=== PATIENT | male | born 1960 | race Caucasian/White ===

== ENCOUNTER 2017-12-22 10:25 | Inpatient (IN) | payer BC ==
--- NOTE | 2017-12-21 15:59 | Diagnostic Imaging Report ---
PROCEDURE: Frontal and lateral views of the chest. COMPARISON: None. INDICATIONS: PRE OPERATIVE CHEST X-RAY FOR SHOULDER SURGERY FINDINGS: Lines/tubes: None. Lungs: The lungs are well inflated and clear. There is no evidence of pneumonia or pulmonary edema. Pleura: There is no pleural effusion or pneumothorax. Heart and mediastinum: The heart and the mediastinum are normal. Bones: No acute bony abnormality. Degenerative changes in the thoracic spine. IMPRESSION: 1. No acute cardiopulmonary abnormalities. Willi Lewis M.D. Dictated by: Willi Lewis M.D. on 12/21/2017 at 16:01 Electronically approved by: Willi Lewis M.D. on 12/21/2017 at 16:01
[~2017-12-22] VITALS: Ht 170.2 cm; Wt 82.6 kg
[~2017-12-22 10:25] MED LIST: ALEVE220 M1 PO; LISINOPRIL10 MG PO; TYLENOL PO
--- OUTSIDE RECORDS SUMMARY | 2017-12-22 10:27 | XMS REPORT ---
Author Author [facility] Address Unknown Phone Unavailable Care Team Providers Care Bushler Name Role Phone SHAHEEN JOY Unavailable Unavailable Problems This patient has no known problems. Allergies, Adverse Reactions, Alerts This patient has no known allergies or adverse reactions. Medications This patient has no known medications. Results Test Description Test Time Test Comments Text Results Atomic Results Result Comments CHEST 2 VIEWS [place] [address] Patient Name: EMILY KEE MR #: [id number] : 1960 Age/Sex: 57/M Req # : [id number] Adm Physician: Ordered by: CHUCK NICE MD Report #: [id number] Location: OR Room/Bed: Procedure: [id number] DX/CHEST 2 VIEWS Exam Date: 12/21/17 Exam Time: 1540 REPORT STATUS: Signed PROCEDURE: Frontal and lateral views of the chest. COMPARISON: None. INDICATIONS: PRE OPERATIVE CHEST X- RAY FOR SHOULDER SURGERY FINDINGS: Lines/tubes: None. Lungs: The lungs are well inflated and clear. There is no evidence of pneumonia or pulmonary edema. Pleura: There is no pleural effusion or pneumothorax. Heart and mediastinum: The heart and the mediastinum are normal. Bones: No acute bony abnormality. Degenerative changes in the thoracic spine. IMPRESSION: 1. No acute cardiopulmonary abnormalities. Chapin Lewis M.D. Dictated by: Cahpin Lewis M.D. on 12/21/2017 at 16:01 Electronically approved by: Chapin Lewis M.D. on 12/21/2017 at 16:01 Dictated By: CHAPIN LEWIS MD [id number] Transcribed By: ISABELLA on 12/21/17 1601 COPY TO: CHUCK NICE MD
[2017-12-22] MEDS ORDERED: CEFAZOLIN SOD 1 GM VIAL ONE (10:31)
[2017-12-22] MEDS ORDERED: IOPAMIDOL 610MG/1ML 300 MG/ML VIAL IV ONE (12:20)
[2017-12-22] MEDS ORDERED: BELLADONNA/OPIUM 30 MG SUPP RC ONE (14:06)
[2017-12-22] MEDS ORDERED: FENTANYL CITRATE/PF 100MCG/2 ML INJ ONE ×2 (14:28→15:11)
[2017-12-22] MEDS ORDERED: MORPHINE SULFATE INJ 10 MG/ML ONE (14:36)
[2017-12-22] MEDS ORDERED: ROCURONIUM BROMIDE 10 MG/ML 5ML VIAL ONE (14:38)
[2017-12-22] MEDS ORDERED: LIDOCAINE HCL 2% LOCAL INJ 5 ML SDV VIAL INJ ONE (14:38)
[2017-12-22] MEDS ORDERED: SEVOFLURANE INHAL SOLN 250 ML PEN BTL ONE (14:38)
[2017-12-22] MEDS ORDERED: ONDANSETRON HCL INJ 2 MG/ML VIAL ONE (14:38)
[2017-12-22] MEDS ORDERED: DEXAMETHASONE SOD PHOS INJ 4 MG/ML VIAL ONE (14:38)
[2017-12-22] MEDS ORDERED: PROPOFOL IV EMULSION 10 MG/ML 20 ML VIAL ONE (14:38)
[2017-12-22] MEDS ORDERED: MIDAZOLAM HCL 2 MG/2 ML VIAL ONE (15:11)
[2017-12-22] MEDS ORDERED: CEFAZOLIN SOD 1 GM/NS 50ML 50 ML IV SCH (16:15)
[2017-12-22 16:38] VITALS: BP 176/70
[2017-12-22] MEDS ORDERED: CEFAZOLIN SOD 1 GM VIAL IV SCH (16:45)
[2017-12-22 17:06] VITALS: BP 176/70
[2017-12-22] MEDS: HYDROMORPHONE 2MG/ML INJ IV PRN ×2 (17:15→20:45)
[2017-12-22 17:21] LABS: HEMATOCRIT 40.1 % (38.2-49.6); HEMOGLOBIN 13.3 g/dL (14.0-18.0)
[2017-12-22 18:46] VITALS: BP 134/64
[2017-12-22 20:00] VITALS: BP 93/66
[2017-12-22 20:22] VITALS: BP 93/66
[2017-12-22] MEDS: CEFAZOLIN SOD 1 GM VIAL IV SCH (21:41)
--- NOTE | 2017-12-23 00:22 | Operative Report ---
DATE OF PROCEDURE: December 22, 2017 SERVICE: Urology. PREOPERATIVE DIAGNOSES 1. Gross hematuria. 2. Possible bladder tumors. POSTOPERATIVE DIAGNOSES 1. Gross hematuria. 2. Possible bladder tumors. 3. Extensive bladder tumor involving multiple areas of the bladder, size well over 10 cm. OPERATIONS PERFORMED 1. Cystoscopy and evacuation of blood clots. 2. Transurethral resection of multiple bladder tumor in the anterior right wall, posterior wall, and near the bladder outlet, way over 10 cm. PERSONNEL REPRESENTATIVE: None. ANESTHESIA: General. CLINICAL INDICATION NOTE: This is a 57-year-old patient that had hematuria several years ago. At that time, refused to be further evaluated, though I have recommended evaluation including cystoscopy. Recently, patient had severe recurrent hematuria and now, he agreed to be evaluated and was brought for cystoscopy. Possibility of tumor was discussed with the patient. Procedure, benefits, and complications discussed, explained, and accepted. DESCRIPTION OF PROCEDURE AND FINDINGS: After proper level of anesthesia was achieved, the patient was placed in lithotomy position, prepped and draped in sterile fashion. Urethra inspected appeared to be unremarkable. The outlet obstructed minimally by enlarged prostate. Bladder is having multiple blood clots and they were all evacuated. Following this, it was possible to assess the bladder and extensive tumor was present, most of it on the left side of the bladder and anteriorly extending all the way to the bladder outlet. Additional tumor on the trigone and on the posterior aspect of the bladder. The tumors are quite large. It was not possible to do any retrograde pyelograms. The ureteral orifices could not be identified. Following this, the scope was removed and the resectoscope was re-inserted and systematic resection of this much tumor as possible was done. Does not seem that it was possible to do a transurethral resection to the extent of the tumor. At best, this is a partial resection. The tumor had parts, which are solid and parts, which are papillary. All the specimen that were removed were sent to pathology. Following the resection with the loop, a coagulation bulb was inserted and any visible bleeding were carefully coagulated. Following this, a 24-Syriac 3-way Dorado catheter was inserted and connected to continuous irrigation with water. Patient tolerated the procedure well. Estimated blood loss during the procedure was negligible. Patient was transferred in satisfactory condition to recovery room. Job#: [id number] CQ
[2017-12-23] MEDS: HYDROMORPHONE 2MG/ML INJ IV PRN ×2 (01:17→09:40)
[2017-12-23 04:00] VITALS: BP 87/54
[2017-12-23 07:20] VITALS: BP 119/62
[2017-12-23 07:28] VITALS: BP 119/62
[2017-12-23] MEDS: CEFAZOLIN SOD 1 GM VIAL IV SCH (11:34)
[2017-12-23 11:38] VITALS: BP 127/68
--- NOTE | 2017-12-24 13:40 | Discharge Summary ---
FINAL DIAGNOSES 1. Gross hematuria. 2. Status post cystoscopy and evacuation of blood clot, transurethral resection of multiple urinary bladder tumors in the anterior right wall, posterior wall and near the bladder outlet, well over 10 cm. SUMMARY: This is a 57-year-old male with history of hematuria for months. The patient now had cystoscopy done and was found to have multiple lesions in the urinary bladder. Tumors subsequently removed, pathology is still pending. Signs and symptoms in the urinary bladder with cystoscopy consistent with urinary bladder tumor. The patient's pathology, however, is still pending. Discussed with patient at length. He will need further surgery upon followup when pathology is available. The patient will go home today. Follow up with Dr. Jorge Abebe as an outpatient. He will go home with a Dorado catheter with a leg bag. All instructions were given. Patient is stable and discharged home with Augmentin 500 mg 1 twice a day for 6 days and Tylenol No. 3 p.r.n. for pain. The patient expressed understanding. He will discharge home today. Job#: [id number]
== END 2017-12-23 13:44 | disposition home health service (06) | DRG 670 ==
LOC: OR 10:25 → MED/SURG 16:26
PROVIDERS: ADMIT Internal Medicine; ATTEND Internal Medicine
PROC: 0TBB8ZX Excision of Bladder, Via Natural or Artificial Opening Endoscopic, Diagnostic (ICD-10-PCS; principal; 2017-12-22 13:00)
DX: C67.9 Malignant neoplasm of bladder, unspecified (principal); D64.9 Anemia, unspecified; I10 Essential (primary) hypertension
CPT/HCPCS: 36415; 71046; 85014; 85018; 88305; 93005; J0690; J1100; J2001; J2250; J2270; J2405

== ENCOUNTER 2017-12-25 20:46 | Emergency (ER) | payer BC ==
[~2017-12-25] VITALS: Ht 170.2 cm; Wt 82.6 kg
--- OUTSIDE RECORDS SUMMARY | 2017-12-25 20:49 | XMS REPORT | Continuity of Care Document ---
Author Author [facility] Organization [facility] Address [address] [place] [address] Phone Unavailable Care Team Providers Care Data Analysis Assistant Name Role Phone NO, PCP PCP Unavailable Insurance Providers Guarantor Mynor To Address [address] [place] [address] Email [email or web address] Payer [facility] Policy Number [id number] Subscriber's Name Mynor To Relationship 18 Self / Same As Patient Effective Date 17 Advance Directives Directive Response Recorded Date/Time Does the patient have an advance directive? No 12/22/17 4:38pm If yes, is advance directive on file with [facility]? No 12/22/17 4:38pm If not on file with [facility] will patient provide a copy? No 12/22/17 4:38pm Do you have a Directive to Physician? No 12/21/17 2:47pm Do you have a Medical Power of Electrical Systems Design Engineer? No 12/21/17 2:47pm Do you have an out of hospital Do Not Resuscitate Order? No 12/21/17 2:47pm Do you have any special needs we should be aware of? No 12/21/17 2:47pm Do you have a support person here with you today? Yes 12/21/17 2:47pm Did patient receive Notice of Privacy Practices? Yes 12/21/17 2:47pm Did patient receive patient rights and responsibilities? Yes 12/21/17 2:47pm Problems No problem information available. Medications Current Home Medications Medication Dose Units Route Directions Days Qty Instructions Start Date Lisinopril 10 Mg Tablet 40 Mg Oral Daily 30 Tab Naproxen Sodium (Aleve) 220 Mg Capsule Oral As Needed Tylenol 650 Mg Oral As Needed Social History Social History Problem Response Recorded Date/Time Onset Date Status Hx Psychiatric Problems No 12/22/2017 4:38pm Not Applicable Not Applicable Hx Eating Disorder No 12/22/2017 4:38pm Not Applicable Not Applicable Hx Substance Use Disorder No 12/22/2017 4:38pm Not Applicable Not Applicable Hx Depression No 12/22/2017 4:38pm Not Applicable Not Applicable Hx Alcohol Use No 12/22/2017 4:38pm Not Applicable Not Applicable Hx Substance Use Treatment No 12/22/2017 4:38pm Not Applicable Not Applicable Hx Physical Abuse No 12/22/2017 4:38pm Not Applicable Not Applicable Smoking Status Start Date Stop Date Current every day smoker Hospital Discharge Instructions No hospital discharge instruction information available. Plan of Care Discharge Date 12/23/17 1:44pm Disposition HOME HEALTH SERVICE Instructions/Education Provided Post Operative Pain Prescriptions See Medication Section Additional Instructions/Education MAY SHOWER WITH READ FOLLOW UP WITH DR. Mau JOY 1 TO 2 WEEKS TO REMOVE READ OVER THE COUNTER AZO THREE TIMES A DAY NEEDED FOLLOW UP WITH PCP DIRECTED Functional Status Query Response Date Recorded Assistive Devices None December 22, 2017 4:38pm Ambulation Ability Independent December 22, 2017 4:38pm Toileting Ability Independent December 23, 2017 9:36am Allergies, Adverse Reactions, Alerts Allergen Type Severity Reaction Status Last Updated No Known Drug Allergies Allergy Mild Active 10/19/10 Immunizations No immunization information available. Vital Signs Acute Vital Signs Vital Response Date/Time Temperature (Fahrenheit) 96.5 degrees F (97.6 - 99.5) 12/23/2017 11:38am Pulse Pulse Rate (adult) 76 bpm (60 - 90) 12/23/2017 11:38am Respiratory Rate 19 bpm (12 - 24) 12/23/2017 11:38am Blood Pressure 127/68 mm Hg 12/23/2017 11:38am Height 5 ft 7 in 12/22/2017 4:38pm Weight 182.19 lb 12/22/2017 4:38pm Body Mass Index 28.5 kg/m^2 12/22/2017 4:38pm Results Laboratory Results Test Name Result Units Flags Reference Collection Date/Time Result Date/ Time Comments Hemoglobin 13.3 g/dL L 14.0-18.0 12/22/2017 5:02pm 12/22/2017 5:21pm Hematocrit 40.1 % 38.2-49.6 12/22/2017 5:02pm 12/22/2017 5:21pm Procedures Procedure Status Date Provider(s) Cystoscopy with retrograde pyelography Completed 12/22/17 SHAHEEN JOY MD X-ray of chest, two views Active 12/21/17 CHUCK NICE MD Encounters Encounter Location Arrival/Admit Date Discharge/Depart Date Attending Provider Discharged Inpatient [facility] 12/22/17 4:26pm 12/23/17 1:44pm LENORA REVELES MD
[2017-12-25 22:41] VITALS: BP 139/91
== END 2017-12-25 22:41 | disposition home or self-care (01) ==
LOC: ER 20:46
DX: Z98.890 Other specified postprocedural states (principal); N48.89 Other specified disorders of penis; Z85.51 Personal history of malignant neoplasm of bladder
CPT/HCPCS: 99282

== ENCOUNTER → 2018-01-12 | Outpatient (CLI) | payer BC ==
--- NOTE | 2018-01-12 18:45 | Diagnostic Imaging Report ---
Bone Scan, delayed phase INDICATION: Bladder tumor diagnosed 3 weeks ago. COMPARISON: None REPORT: Approximately 3 hours following intravenous administration of 26.5 mCi of Tc-99m MDP, delayed total body images in the anterior and posterior projections and selected spot images were obtained. Small focus of mildly increased tracer activity in the right 8th rib posteriorly near the costovertebral junction. Focal areas of increased tracer are seen in the left side of T10 and T11 as well as the right side of L3-L5 and at L5/S1 on the left. Mild degenerative changes are seen in multiple peripheral joints. Otherwise, distribution of tracer activity is unremarkable throughout the skeletal system. The renal parenchyma of the left kidney shows retention of tracer. No abnormal accumulation of tracer in the renal collecting systems. IMPRESSION: 1. No definite evidence of metastatic bone disease. Degenerative changes are present in the lower thoracic and lower lumbar spine. The small osteoblastic focus at the right costovertebral junction of the right 8th rib is indeterminate but likely degenerative or post-traumatic. 2. Retention of tracer in the left kidney parenchyma suggests an inflammatory or infiltrative process. Signed by: Dr. Leigh Ames M.D. on 01/12/2018 6:42 PM
== END ==
LOC: NM 10:58
PROVIDERS: ATTEND Urology
DX: C67.9 Malignant neoplasm of bladder, unspecified (principal); R31.0 Gross hematuria
CPT/HCPCS: 78306; A9503

== ENCOUNTER → 2018-02-05 | Outpatient (CLI) | payer BC ==
[~2018-02-05] MED LIST changes: +IOPAMIDOL 370 MG/ML 200 ML INFUS..BTL INJ ONE; +SODIUM CHLORIDE 0.9% 250ML 250 ML ONE
[2018-02-05 12:40] LABS: CREATININE, SERUM 1.24 mg/dL (0.72-1.25)
--- NOTE | 2018-02-05 15:17 | Diagnostic Imaging Report ---
ADDENDUM #1 Multiple unsuccessful attempts were made to notify Dr. Abebe on 02/05/2018 between 3:15 PM to 4:[address] Abebe was paged by his office staff with call back number to discuss the findings. Signed by: Dr. Rito Ferrer MD on 02/05/2018 4:37 PM ADDENDUM #2 CT results were discussed with Dr. Abebe at 4:40 PM, on 02/05/2018. Signed by: Dr. Rito Ferrer MD on 02/05/2018 4:41 PM ORIGINAL REPORT EXAM: CT Abdomen and Pelvis WITHOUT and WITH contrast INDICATION: \[id number] \S\1331 \S\BLADDER CANCER / HEMATURIA COMPARISON: None. TECHNIQUE: Abdomen and pelvis were scanned utilizing a multidetector helical scanner from the lung base to the pubic symphysis before and after administration of IV contrast. Coronal and sagittal reformations were obtained. Hematuria (CT Urogram) protocol was performed. Scan was performed pre- in supine position and nephrogenic/excretory phase with a 10 minute split bolus in prone position. IV CONTRAST: 150 mL of Isovue-370 ORAL CONTRAST: Water COMPLICATIONS: None RADIATION DOSE: Total DLP: 1225.64 mGy*cm Estimated effective dose: (DLP x 0.015 x size factor) mSv CTDIvol has been reviewed. It is below the limits set by the Radiation Protocol Committee (RPC). FINDINGS: LINES and TUBES: None. LOWER THORAX: Mild centrilobular emphysematous changes. Mild lingular linear atelectasis/scarring. HEPATOBILIARY: Ill-defined subtle right hepatic lobe hypodensity is too small to characterize (series 6, image 36). No hepatic mass. No biliary ductal dilation. GALLBLADDER: No radio-opaque stones or sludge. No wall thickening. SPLEEN: Mild splenomegaly, measuring 12.6 cm. PANCREAS: No focal masses or ductal dilatation. ADRENALS: Thickening of the left adrenal gland without discrete nodule. Unremarkable right adrenal gland. KIDNEYS/URETERS: Kidneys: Decreased left renal enhancement when compared to contralateral side. Mild to moderate left hydroureteronephrosis. No right hydronephrosis. Cyst: None. Right renal inferior pole subcentimeter hypodensity is too small to characterize, but is probably a cyst. Mass: None. Stones: None. Upper collecting systems: No right irregularities or filling defects. Left collecting systems are not opacified. Ureters: Right ureter is almost fully opacified and normal in appearance. Left ureter is not opacified. Bladder: Multifocal bladder masses, the largest measuring approximately 6.5 x 4.7 cm (series 6, image 126). There is left posterior extraluminal extension of tumor, probably involving the distal left ureter (series 6, image 121). GI TRACT: No abnormal distention, wall thickening, or evidence of bowel obstruction. Appendix is normal. PELVIC ORGANS/BLADDER: Unremarkable. LYMPH NODES: Approximately 2.2 x 0.9 cm left external iliac lymph node (series 6, image 113). 1.3 cm left common iliac lymph node (series 6, image 87). 1.2 cm gastrohepatic lymph node (series 6, image 31). 1.2 cm portacaval lymph node (6/44). 0.9 cm periportal lymph node (6/35). Multiple additional subcentimeter nonspecific retroperitoneal lymph nodes. VESSELS: Mild aortoiliac atherosclerotic disease. PERITONEUM / RETROPERITONEUM: No free air or fluid. BONES: Mild levoscoliosis of lumbar spine with multilevel advanced degenerative changes. SOFT TISSUES: Unremarkable. IMPRESSION: 1. Multifocal bladder masses, consistent with known malignancy. There is left posterior extraluminal extension of tumor with probable involvement of the distal left ureter at the ureterovesical junction and resultant mild to moderate left hydroureteronephrosis and delayed left nephrogram. 2. Left external iliac and common iliac lymph nodes are suspicious for metastatic disease. Multiple additional retroperitoneal lymph nodes are indeterminate. Signed by: Dr. Rito Ferrer MD on 02/05/2018 3:14 PM
== END ==
LOC: CT 11:56
PROVIDERS: ATTEND Urology
DX: C67.9 Malignant neoplasm of bladder, unspecified (principal); R31.9 Hematuria, unspecified
CPT/HCPCS: 36415; 74178; 82565; 84520; J7050; Q9967

== ENCOUNTER 2018-02-19 10:29 | Inpatient (IN) | payer BC ==
[2018-02-16 10:24] LABS: BASOPHILS % 0.4 % (0.0-1.0); EOSINOPHILS # (AUTO) 0.2 (0.0-0.4); EOSINOPHILS % 2.9 % (0.0-6.0); HEMATOCRIT 35.1 % (38.2-49.6); HEMOGLOBIN 11.7 g/dL (14.0-18.0); LYMPHOCYTES # (AUTO) 2.5 (1.0-3.2); LYMPHOCYTES % 34.5 % (18.0-39.1); MEAN CORPUSCULAR HEMOGLOBIN 28.5 pg (28-32); MEAN CORPUSCULAR HGB CONC 33.3 g/dL (31-35); MEAN CORPUSCULAR VOLUME 85.6 fL (81-99); MONOCYTES # (AUTO) 0.8 (0.2-0.8); MONOCYTES % 10.9 % (4.4-11.3); NEUTROPHILS # (AUTO) 3.7 (2.1-6.9); PLATELET COUNT 183 x10e3/uL (140-360); RED CELL DISTRIBUTION WIDTH 13.9 % (11.7-14.4)
[2018-02-19] VITALS (13 sets, daily range): BP systolic 129–143; BP diastolic 76–98
[~2018-02-19] VITALS: Ht 170.2 cm; Wt 85.7 kg
[~2018-02-19 10:29] MED LIST changes: -IOPAMIDOL 370 MG/ML 200 ML INFUS..BTL INJ ONE; -SODIUM CHLORIDE 0.9% 250ML 250 ML ONE
[2018-02-19] MEDS ORDERED: CEFAZOLIN SOD 1 GM VIAL ONE (10:49)
[2018-02-19] MEDS ORDERED: TOBRAMYCIN 40 MG/ML 2ML VIAL ONE (10:50)
[2018-02-19] MEDS ORDERED: FENTANYL CITRATE/PF 100MCG/2 ML INJ ONE ×3 (11:54→19:05)
[2018-02-19] MEDS ORDERED: MORPHINE SULFATE INJ 10 MG/ML ONE (15:31)
[2018-02-19] MEDS ORDERED: MIDAZOLAM HCL 2 MG/2 ML VIAL ONE (15:31)
[2018-02-19] MEDS ORDERED: NALOXONE HCL INJ 0.4 MG/ML AMP IV PRN (19:00)
[2018-02-19] MEDS ORDERED: ONDANSETRON HCL INJ 2 MG/ML VIAL IV PRN (19:00)
[2018-02-19] MEDS ORDERED: ACETAMINOPHEN 1000 MG/100 ML IV PRN (19:00)
[2018-02-19] MEDS ORDERED: DIPHENHYDRAMINE HCL INJ 50 MG/ML VIAL IM PRN (19:00)
[2018-02-19] MEDS ORDERED: PROMETHAZINE HCL (IM) 25 MG/ML VIAL ONE (19:08)
[2018-02-19] MEDS ORDERED: MORPHINE SULFATE 1 MG/ML 30ML PCA ONE (19:14)
--- NOTE | 2018-02-19 20:03 | Diagnostic Imaging Report ---
EXAMINATION: CHEST SINGLE (PORTABLE) INDICATION: \S\R/O PTX \[id number] \S\1928 COMPARISON: CT abdomen and pelvis 02/05/2018 and chest radiograph 12/21/2017 FINDINGS: AP view TUBES and LINES: Interval placement of a NG/OG tube with tip overlying the gastric body. LUNGS: Low lung volumes. Bibasilar atelectasis. There is no evidence of pneumonia or pulmonary edema. PLEURA: No pleural effusion or pneumothorax. HEART AND MEDIASTINUM: The cardiomediastinal silhouette is unremarkable.. BONES AND SOFT TISSUES: No acute osseous lesion. Soft tissues are unremarkable. UPPER ABDOMEN: No free air under the diaphragm. IMPRESSION: No pneumothorax. Signed by: Dr. Prema Melendez M.D. on 02/19/2018 7:59 PM
[2018-02-19] MEDS ORDERED: GLYCOPYRROLATE INJ 1MG/ 5 ML SYR ONE (20:11)
[2018-02-19] MEDS ORDERED: ONDANSETRON HCL INJ 2 MG/ML VIAL ONE (20:11)
[2018-02-19] MEDS ORDERED: LIDOCAINE HCL 2% LOCAL INJ 5 ML SDV VIAL INJ ONE (20:11)
[2018-02-19] MEDS ORDERED: DEXAMETHASONE SOD PHOS INJ 4 MG/ML VIAL ONE (20:11)
[2018-02-19] MEDS ORDERED: ROCURONIUM BROMIDE 10 MG/ML 5ML VIAL ONE (20:11)
[2018-02-19] MEDS ORDERED: NEOSTIGMINE 5 MG/5ML SYR ONE (20:11)
[2018-02-19] MEDS ORDERED: PROPOFOL IV EMULSION 10 MG/ML 20 ML VIAL ONE (20:11)
[2018-02-19] MEDS ORDERED: SEVOFLURANE INHAL SOLN 250 ML PEN BTL ONE (20:11)
[2018-02-19] MEDS: SODIUM CHLORIDE 0.9% 250ML IRRIG IR SCH ×2 (20:38→23:00)
[2018-02-19] MEDS: D5.45%NS/KCL 20MEQ 1,000 ML IV SCH (20:43)
[2018-02-19] MEDS ORDERED: SODIUM CHLORIDE 0.9% 250ML 250 ML ONE (20:47)
[2018-02-19] MEDS: CLINDAMYCIN 300MG 50 ML IV SCH (20:56)
[2018-02-19] MEDS: PIPER-TAZ 3.375 GM 50 ML IV SCH (22:40)
--- NOTE | 2018-02-19 23:59 | Operative Report ---
DATE OF PROCEDURE: February 19, 2018 SERVICE: Urology. PREOPERATIVE DIAGNOSES: 1. Transitional cell cancer of the bladder, advanced. 2. Gross hematuria. 3. Left hydronephrosis. 4. Left hydroureter. POSTOPERATIVE DIAGNOSES: 1. Transitional cell cancer of the bladder, advanced. 2. Gross hematuria. 3. Left hydronephrosis. 4. Left hydroureter. 5. Extravesical mass on the left pelvic wall, tumor ?. OPERATIONS PERFORMED: Pelvic exenteration including, 1. Bilateral pelvic lymphadenectomy. 2. Radical cystectomy. 3. Ileal conduit. 4. Placement of bilateral single J stent. SHAPER HAND: Dr. Jorge Abebe. TYPE OF ANESTHESIA: General. CLINICAL INDICATION NOTE: A 57-year-old who presented with gross hematuria. He did have hematuria about a year and a half ago, however, he elected at that time not to evaluate. Upon recent evaluation, extensive cancer of the bladder was noticed including obstruction of the left ureter and left hydronephrosis and hydroureter. The patient was given various options of treatment including radical cystectomy and should it be possible, to perform at least ileal conduit to facilitate further treatment with other modalities. Potential complications as well as benefits were discussed and accepted. DESCRIPTION OF THE PROCEDURE AND FINDINGS: After proper level of anesthesia was achieved, the patient was placed in supine position, prepped and draped in a sterile fashion. A 24/30 mL Dorado catheter was inserted and the bladder was drained. A midline incision was done starting at the symphysis pubis, extended into the umbilicus, going into the left side of it and extended it up another 2 inches. The peritoneal cavity was then entered. Palpation of the stoma verified the proper position of the NG tube. The liver was palpated. No masses or any abnormality was noted on the liver. Bowel was inspected. No abnormality noticed. Following this, a dissection of both pelvic lymphadenectomy was done. All the lymphatic tissue medial to the iliac artery between the internal and external iliac and down into the obturator fossa was removed on each side and sent separately off to pathology. Of note, on the left side of the bladder, a significant mass attached to the bladder was noticed. However, it was possible to demonstrate mobility of the mass and the bladder and therefore elected to proceed with radical cystectomy. Dissection of the peritoneum was done over the prostate. Triangular shaped excision of the peritoneum was done starting at the umbilicus and going down to both sides. The left and right ureter were identified, dissected, clamped and transected. Segment of each ureter was sent to pathology verifying no tumor involvement. Both ureters had a placement of a stay suture 3-0 Vicryl. The distal ureter on each side was tied with a silk and attached to an instrument, so it will be assisting in the dissection to the base of the bladder. Following this, each pedicle of the bladder was created on each side and with the use of LigaSure the coagulation and dissection was carried down towards the urethroprostatic junction. At this point, it was noticed that the mass on the left side is quite adherent and therefore is elected to put vascular clamp on it and dissection was carried along the bladder and that mass will be handled at a later time. Dissection was continued until the prostate was attached only to the urethra. The Dorado was obviously being palpated in the proper position. Posteriorly, the prostate was dissected free from the rectum as well as the seminal vesicle which was dissected with the prostate. Following this, 0-Vicryl suture was used to control the dorsal complex vein and the urethra was transected in the apex of the prostate. Any additional prostatic tissue was removed as well and sent with the specimen to pathology. At this point, attention was made to the mass on the left pelvic side. The mass was excised and the attachment to the site was controlled by a running suture of 2-0 Prolene. No active bleeding was noticed at the present dissection. Following this, attention was made to create the ileal conduit. The dissection on both sides of the colon was done. The left ureter was dissected longer than the right. It was markedly elevated as noticed from the previous preoperative studies demonstrating hydronephrosis and hydroureter. The ureter was transferred from the left retroperitoneum to the right side near the right ureter and this was done just above the level of the promontorium. The transfer was in a very smooth manner with care to prevent any angulation. Following this, with the use of the LINDY and TA-55, a segment of bowel was prepared for the ileal conduit. The segment of bowel was freed and the bowel was re-anastomosed anterior to it. The distal part and the proximal part were marked for identification. Following this, anastomosis was done between the ureter and the base of the posterior aspect of the ileal segment. Anastomosis was done using 4-0 Vicryl sutures. The anastomosis was done using interrupted sutures and single J stent was inserted into each side. Anastomosis was practically watertight. The type for stoma that was planned is a Jacques stoma. About an inch and a half from the distal part, an incision was made and the bowel was opened. Both single J stents were sutured with a 4-0 chronic catgut to prevent displacement. Following this, the prepicked spot for the ileal conduit stoma was prepared. A round incision was made that was dissected down to the fascia. The fascia was incised in a X fashion. A 2-finger opening was done into the peritoneum. The 4 corners of the fascia was sutured to the base of the protruding loop for the stoma. Following this, the stoma was rotated. The distal part which is connected to loop was sutured in a bud fashion putting stitch into the skin, the base of the fascia and at the edge. The blind segment was sutured directly to the skin. A 3-0 chronic catguts were used for this part. The stoma remained quite pink during the whole case. Following this, a 24-Albanian 5 mL Dorado catheter segment was cut and holes were placed on it. This was inserted into the stoma to assist in the drainage. It was fixed to the skin with #0 Prolene. A #0 Prolene was also used to anchor both single Js to prevent displacement. Following this, a 19-Pedro drain was inserted through a separate stab incision on the left side and secured to the skin with 2-0 Prolene. The omentum was brought down to cover the opening incision. The rectus muscles were approximated with PDS sutures. A #1 PDS was used to approximate the fascia with interrupted figure-of-8 sutures. After finishing this part, the wound was irrigated and gloves were changed. The skin was approximated with skin silverio. Following this, the blind was attached to the newly created stoma. Estimated blood loss during the case was 2 units, that were given during the procedure. Estimated blood loss during the procedure about 1-1/2 units. The patient tolerated the procedure well and was transferred to the recovery room with NG tube, a Dorado which was used as a drain and placed in the urethra and inflated in the retropubic space with about 40 mL of water and placed under minimal traction. No active bleeding was noticed at the end of the procedure. Job#: [id number] KEY
[2018-02-20] VITALS (45 sets, daily range): BP systolic 102–151; BP diastolic 47–87
[2018-02-20] MEDS: SODIUM CHLORIDE 0.9% 250ML IRRIG IR SCH ×5 (03:27→20:11)
[2018-02-20] MEDS: D5.45%NS/KCL 20MEQ 1,000 ML IV SCH ×3 (04:30→20:10)
[2018-02-20] MEDS: CLINDAMYCIN 300MG 50 ML IV SCH ×3 (05:30→21:53)
[2018-02-20 05:51] LABS: BASOPHILS % 0.2 % (0.0-1.0); HEMATOCRIT 33.1 % (38.2-49.6); HEMOGLOBIN 11.3 g/dL (14.0-18.0); LYMPHOCYTES # (AUTO) 2.4 (1.0-3.2); LYMPHOCYTES % 20.1 % (18.0-39.1); MEAN CORPUSCULAR HEMOGLOBIN 29.2 pg (28-32); MEAN CORPUSCULAR HGB CONC 34.1 g/dL (31-35); MEAN CORPUSCULAR VOLUME 85.5 fL (81-99); MONOCYTES # (AUTO) 1.1 (0.2-0.8); MONOCYTES % 8.7 % (4.4-11.3); NEUTROPHILS # (AUTO) 8.5 (2.1-6.9); NEUTROPHILS % 70.6 % (38.7-80.0); PLATELET COUNT 183 x10e3/uL (140-360); RED BLOOD COUNT 3.87 x10e6/uL (4.3-5.7)
[2018-02-20] MEDS: PIPER-TAZ 3.375 GM 50 ML IV SCH ×3 (05:57→22:44)
[2018-02-20 06:25] LABS: ANION GAP 13.8 mmol/L (8-16); BLOOD UREA NITROGEN 20 mg/dL (7-26); BUN/CREATININE RATIO 18 (6-25); CALCIUM 7.9 mg/dL (8.4-10.2); CARBON DIOXIDE 21 mmol/L (22-29); CHLORIDE 105 mmol/L (98-107); CREATININE, SERUM 1.14 mg/dL (0.72-1.25); EST GLOMERULAR FILTRATION RATE > 60 ML/MIN (60-); GLUCOSE 124 mg/dL (74-118); POTASSIUM 4.8 mmol/L (3.5-5.1); SODIUM 135 mmol/L (136-145)
[2018-02-20] MEDS: MORPHINE SULFATE 1 MG/ML 30ML PCA IV PRN ×2 (08:25→19:55)
[2018-02-20] MEDS ORDERED: CALCIUM GLUCONATE 10% INJ 4.65 MEQ in SODIUM CHLORIDE 0.9% 50ML 50 ML IV ONE ×4 (09:45)
[2018-02-20] MEDS ORDERED: HYDRALAZINE HCL 20 MG/ML VIAL IV PRN (15:00)
--- NOTE | 2018-02-20 15:57 | History and Physical ---
The patient does not have a local PCP. CHIEF COMPLAINT: Status post radical cystectomy. HISTORY OF PRESENT ILLNESS: Mr. To is a 57-year-old gentleman who presents from the PACU after radical cystectomy and ileal conduit for stage-4 transitional cell bladder cancer. REVIEW OF SYSTEMS: He denies fever, chills or weight loss. He denies sinus congestion or sore throat. He denies chest pain or palpitations. He denies shortness breath, wheezing or cough. He denies abdominal pain except for postop pain at the moment. He denies diarrhea or melena. He is having some postop nausea and vomiting. He denies dysuria. He has a Dorado catheter in place. He was having some gross hematuria prior to surgery. He denies joint pain or swelling. He denies headache, vertigo or loss of consciousness. He denies depression, agitation, homicidal or suicidal ideation. PAST MEDICAL HISTORY: Significant for hypertension and stage-4 bladder cancer. He takes lisinopril for his blood pressure. ALLERGIES: HE HAS NO KNOWN DRUG ALLERGIES. SURGICAL HISTORY: Only distant ankle surgery until this recent radical cystectomy and ileal conduit formation. FAMILY HISTORY: Significant for hypertension. SOCIAL HISTORY: The patient is . Turkmen is his primary language. He does not smoke, drink or use illegal drugs. He is generally independently functioning. DIAGNOSTIC STUDIES: Chest x-ray shows no acute disease. CBC shows a white count of 12.0 with 70% neutrophils. Hemoglobin 11.3 and hematocrit 33.7. His chemistry shows normal electrolytes. CO2 21. Creatinine 1.14 and BUN 20 for a normal GFR. Calcium 7.9. Glucose 124. Magnesium 1.7. IMPRESSION AND PLAN 1. Stage-IV bladder cancer, transitional cell in nature, status post radical debulking, cystectomy and ileal conduit formation. The postop care will be managed by the urology service. 2. Hypertension. Currently stable. Will hold the lisinopril for now and start hydralazine IV q.4 h. as needed for blood pressure greater than 150. 3. For prophylaxis, the patient will have SCDs for DVT prophylaxis and Pepcid for GI prophylaxis. Job#: [id number]
[2018-02-20] MEDS: FAMOTIDINE 20 MG/2 ML VIAL IV SCH ×2 (16:00→21:38)
[2018-02-21] VITALS (37 sets, daily range): BP systolic 83–139; BP diastolic 44–86
[2018-02-21] MEDS ORDERED: ACETAMINOPHEN 1000 MG/100 ML IV SCH
[2018-02-21] MEDS ORDERED: ACETAMINOPHEN 1000 MG/100 ML 100 ML IV ONE (00:08)
[2018-02-21] MEDS: SODIUM CHLORIDE 0.9% 250ML IRRIG IR SCH ×7 (00:14→23:10)
[2018-02-21] MEDS ORDERED: SODIUM CHLORIDE 0.9% 250ML 250 ML ONE (00:30)
[2018-02-21] MEDS: D5.45%NS/KCL 20MEQ 1,000 ML IV SCH ×3 (04:10→19:45)
[2018-02-21 05:20] LABS: BASOPHILS # (AUTO) 0.1 (0.0-0.1); BASOPHILS % 0.3 % (0.0-1.0); EOSINOPHILS # (AUTO) 0.1 (0.0-0.4); HEMATOCRIT 32.8 % (38.2-49.6); HEMOGLOBIN 10.7 g/dL (14.0-18.0); LYMPHOCYTES # (AUTO) 3.2 (1.0-3.2); LYMPHOCYTES % 21.8 % (18.0-39.1); MEAN CORPUSCULAR HEMOGLOBIN 28.6 pg (28-32); MEAN CORPUSCULAR HGB CONC 32.6 g/dL (31-35); MEAN CORPUSCULAR VOLUME 87.7 fL (81-99); MONOCYTES # (AUTO) 1.4 (0.2-0.8); MONOCYTES % 9.2 % (4.4-11.3); NEUTROPHILS # (AUTO) 9.8 (2.1-6.9); NEUTROPHILS % 67.2 % (38.7-80.0); PLATELET COUNT 156 x10e3/uL (140-360); RED BLOOD COUNT 3.74 x10e6/uL (4.3-5.7); RED CELL DISTRIBUTION WIDTH 13.7 % (11.7-14.4)
[2018-02-21 05:37] LABS: ANION GAP 11.3 mmol/L (8-16); CREATININE, SERUM 1.25 mg/dL (0.72-1.25); POTASSIUM 4.3 mmol/L (3.5-5.1)
[2018-02-21] MEDS: CLINDAMYCIN 300MG 50 ML IV SCH ×3 (06:11→21:57)
[2018-02-21] MEDS ORDERED: ACETAMINOPHEN 1000 MG/100 ML IV PRN (06:15)
[2018-02-21] MEDS: PIPER-TAZ 3.375 GM 50 ML IV SCH ×3 (06:55→21:13)
[2018-02-21] MEDS: FAMOTIDINE 20 MG/2 ML VIAL IV SCH ×2 (08:35→20:31)
[2018-02-21] MEDS ORDERED: CALCIUM GLUCONATE 10% INJ 9.3 MEQ in SODIUM CHLORIDE 0.9% 100 ML 100 ML IV ONE (10:30)
[2018-02-21] MEDS: MORPHINE SULFATE 1 MG/ML 30ML PCA IV PRN (14:06)
[2018-02-21] MEDS: BISACODYL 10 MG SUPP PR ONE (17:08)
[2018-02-22] VITALS (14 sets, daily range): BP systolic 116–136; BP diastolic 60–92
[2018-02-22] MEDS: MORPHINE SULFATE 1 MG/ML 30ML PCA IV PRN ×2 (00:13→13:03)
[2018-02-22] MEDS: SODIUM CHLORIDE 0.9% 250ML IRRIG IR SCH ×3 (02:54→11:00)
[2018-02-22] MEDS: D5.45%NS/KCL 20MEQ 1,000 ML IV SCH (02:54)
[2018-02-22 05:06] LABS: BASOPHILS % 0.4 % (0.0-1.0); EOSINOPHILS # (AUTO) 0.4 (0.0-0.4); EOSINOPHILS % 3.5 % (0.0-6.0); HEMOGLOBIN 10.2 g/dL (14.0-18.0); LYMPHOCYTES # (AUTO) 1.5 (1.0-3.2); LYMPHOCYTES % 14.1 % (18.0-39.1); MEAN CORPUSCULAR HEMOGLOBIN 28.6 pg (28-32); MEAN CORPUSCULAR HGB CONC 32.9 g/dL (31-35); MEAN CORPUSCULAR VOLUME 86.8 fL (81-99); MONOCYTES # (AUTO) 0.9 (0.2-0.8); MONOCYTES % 8.2 % (4.4-11.3); NEUTROPHILS % 73.3 % (38.7-80.0); PLATELET COUNT 148 x10e3/uL (140-360); RED BLOOD COUNT 3.57 x10e6/uL (4.3-5.7); RED CELL DISTRIBUTION WIDTH 13.3 % (11.7-14.4)
[2018-02-22] MEDS: CLINDAMYCIN 300MG 50 ML IV SCH ×3 (05:27→23:00)
[2018-02-22 05:29] LABS: ANION GAP 10.3 mmol/L (8-16); BLOOD UREA NITROGEN 14 mg/dL (7-26); BUN/CREATININE RATIO 13 (6-25); CALCIUM 8.3 mg/dL (8.4-10.2); CARBON DIOXIDE 27 mmol/L (22-29); CHLORIDE 99 mmol/L (98-107); CREATININE, SERUM 1.09 mg/dL (0.72-1.25); EST GLOMERULAR FILTRATION RATE > 60 ML/MIN (60-); GLUCOSE 117 mg/dL (74-118); POTASSIUM 4.3 mmol/L (3.5-5.1); SODIUM 132 mmol/L (136-145)
[2018-02-22] MEDS: PIPER-TAZ 3.375 GM 50 ML IV SCH ×3 (06:21→23:30)
[2018-02-22] MEDS ORDERED: CALCIUM CHLORIDE 13.6 MEQ in SODIUM CHLORIDE 0.9% 100 ML 100 ML IV ONE (09:30)
[2018-02-22] MEDS: BISACODYL 10 MG SUPP PR ONE (09:35)
[2018-02-22] MEDS: FAMOTIDINE 20 MG/2 ML VIAL IV SCH ×2 (10:04→21:59)
[2018-02-22] MEDS ORDERED: CALCIUM GLUCONATE 10% INJ 9.3 MEQ in SODIUM CHLORIDE 0.9% 100 ML 100 ML IV ONE (11:30)
[2018-02-22] MEDS: D5NS/KCL 20MEQ 1,000 ML IV SCH ×2 (13:05→22:50)
[2018-02-22] MEDS ORDERED: CALCIUM CHLORIDE 13.6 MEQ in SODIUM CHLORIDE 0.9% 100 ML 100 ML IV SCH (13:45)
[2018-02-23] VITALS (8 sets, daily range): BP systolic 107–142; BP diastolic 58–79
[2018-02-23] MEDS: MORPHINE SULFATE 1 MG/ML 30ML PCA IV PRN (00:58)
[2018-02-23 04:41] LABS: BASOPHILS % 0.4 % (0.0-1.0); EOSINOPHILS # (AUTO) 0.4 (0.0-0.4); HEMATOCRIT 28.5 % (38.2-49.6); HEMOGLOBIN 9.5 g/dL (14.0-18.0); LYMPHOCYTES # (AUTO) 1.3 (1.0-3.2); LYMPHOCYTES % 18.5 % (18.0-39.1); MEAN CORPUSCULAR HEMOGLOBIN 28.6 pg (28-32); MEAN CORPUSCULAR HGB CONC 33.3 g/dL (31-35); MEAN CORPUSCULAR VOLUME 85.8 fL (81-99); MONOCYTES # (AUTO) 0.7 (0.2-0.8); MONOCYTES % 10.3 % (4.4-11.3); NEUTROPHILS # (AUTO) 4.6 (2.1-6.9); NEUTROPHILS % 65.2 % (38.7-80.0); PLATELET COUNT 153 x10e3/uL (140-360); RED BLOOD COUNT 3.32 x10e6/uL (4.3-5.7); RED CELL DISTRIBUTION WIDTH 13.3 % (11.7-14.4)
[2018-02-23 05:06] LABS: ANION GAP 9.3 mmol/L (8-16); BLOOD UREA NITROGEN 13 mg/dL (7-26); BUN/CREATININE RATIO 12 (6-25); CALCIUM 8.5 mg/dL (8.4-10.2); CARBON DIOXIDE 27 mmol/L (22-29); CHLORIDE 98 mmol/L (98-107); CREATININE, SERUM 1.09 mg/dL (0.72-1.25); EST GLOMERULAR FILTRATION RATE > 60 ML/MIN (60-); GLUCOSE 104 mg/dL (74-118); MAGNESIUM 1.3 MG/DL (1.3-2.1); POTASSIUM 4.3 mmol/L (3.5-5.1); SODIUM 130 mmol/L (136-145)
[2018-02-23] MEDS: CLINDAMYCIN 300MG 50 ML IV SCH ×3 (06:00→22:40)
[2018-02-23] MEDS: PIPER-TAZ 3.375 GM 50 ML IV SCH ×3 (06:30→22:11)
[2018-02-23] MEDS: FAMOTIDINE 20 MG/2 ML VIAL IV SCH ×2 (10:19→21:50)
[2018-02-23] MEDS ORDERED: FUROSEMIDE INJ 10 MG/ML 2 ML VIAL IV ONE (12:15)
[2018-02-23] MEDS ORDERED: ACETAMINOPHEN/CODEINE 300MG - 30MG TAB PO PRN (12:15)
[2018-02-23] MEDS: ALBUTEROL/IPRATROPIUM 3 ML NEB NEB SCH ×2 (13:25→19:35)
[2018-02-23] MEDS: MORPHINE SULFATE 2 MG/ML SYR IV PRN ×2 (15:45→21:57)
[2018-02-23] MEDS: DOCUSATE SODIUM 100 MG CAP PO SCH (16:30)
[2018-02-24] VITALS (7 sets, daily range): BP systolic 111–146; BP diastolic 64–82
[2018-02-24] MEDS: ALBUTEROL/IPRATROPIUM 3 ML NEB NEB SCH ×4 (00:10→19:00)
[2018-02-24] MEDS: MORPHINE SULFATE 2 MG/ML SYR IV PRN ×5 (04:47→20:40)
[2018-02-24 04:56] LABS: BASOPHILS % 0.4 % (0.0-1.0); EOSINOPHILS # (AUTO) 0.3 (0.0-0.4); EOSINOPHILS % 4.6 % (0.0-6.0); HEMATOCRIT 29.5 % (38.2-49.6); HEMOGLOBIN 10.1 g/dL (14.0-18.0); LYMPHOCYTES # (AUTO) 1.9 (1.0-3.2); LYMPHOCYTES % 27.2 % (18.0-39.1); MEAN CORPUSCULAR HEMOGLOBIN 29.4 pg (28-32); MEAN CORPUSCULAR HGB CONC 34.2 g/dL (31-35); MEAN CORPUSCULAR VOLUME 85.8 fL (81-99); MONOCYTES # (AUTO) 0.6 (0.2-0.8); MONOCYTES % 9.3 % (4.4-11.3); NEUTROPHILS % 58.2 % (38.7-80.0); PLATELET COUNT 187 x10e3/uL (140-360); RED BLOOD COUNT 3.44 x10e6/uL (4.3-5.7); RED CELL DISTRIBUTION WIDTH 13.6 % (11.7-14.4)
[2018-02-24 05:11] LABS: ANION GAP 12.6 mmol/L (8-16); BLOOD UREA NITROGEN 13 mg/dL (7-26); BUN/CREATININE RATIO 12 (6-25); CALCIUM 8.4 mg/dL (8.4-10.2); CARBON DIOXIDE 24 mmol/L (22-29); CHLORIDE 99 mmol/L (98-107); CREATININE, SERUM 1.06 mg/dL (0.72-1.25); EST GLOMERULAR FILTRATION RATE > 60 ML/MIN (60-); GLUCOSE 100 mg/dL (74-118); MAGNESIUM 1.2 MG/DL (1.3-2.1); POTASSIUM 3.6 mmol/L (3.5-5.1); SODIUM 132 mmol/L (136-145)
[2018-02-24] MEDS: PIPER-TAZ 3.375 GM 50 ML IV SCH ×3 (05:35→21:40)
[2018-02-24] MEDS: CLINDAMYCIN 300MG 50 ML IV SCH ×3 (06:33→21:02)
[2018-02-24] MEDS ORDERED: MAGNESIUM SULF 1GRAM/DEXTROSE 100 ML IV ONE (06:45)
[2018-02-24] MEDS: POLYETHYLENE GLYCOL 3350 17 GM PACK PO SCH ×3 (07:23→16:38)
[2018-02-24] MEDS: DOCUSATE SODIUM 100 MG CAP PO SCH ×2 (08:17→16:38)
[2018-02-24] MEDS: FAMOTIDINE 20 MG/2 ML VIAL IV SCH ×2 (08:17→20:25)
[2018-02-24] MEDS ORDERED: MIRALAX17 GM PO (09:38)
[2018-02-24] MEDS ORDERED: LISINOPRIL10 MG PO (09:38)
[2018-02-24] MEDS ORDERED: TYLENOL # 31 EA PO (09:38)
[2018-02-24] MEDS ORDERED: COLACE100 M1 PO (09:38)
[2018-02-25] VITALS: BP 117/68
[2018-02-25] MEDS: ALBUTEROL/IPRATROPIUM 3 ML NEB NEB SCH ×3 (00:10→13:05)
[2018-02-25] MEDS: MORPHINE SULFATE 2 MG/ML SYR IV PRN ×4 (00:20→15:51)
[2018-02-25 04:00] VITALS: BP_SYST 120; BP_SYST 96; BP_DIAS 52; BP_DIAS 73
[2018-02-25] MEDS: PIPER-TAZ 3.375 GM 50 ML IV SCH ×2 (05:04→13:15)
[2018-02-25 05:11] LABS: BASOPHILS % 0.3 % (0.0-1.0); EOSINOPHILS # (AUTO) 0.2 (0.0-0.4); EOSINOPHILS % 3.9 % (0.0-6.0); HEMATOCRIT 30.4 % (38.2-49.6); HEMOGLOBIN 10.2 g/dL (14.0-18.0); LYMPHOCYTES # (AUTO) 1.6 (1.0-3.2); LYMPHOCYTES % 26.2 % (18.0-39.1); MEAN CORPUSCULAR HEMOGLOBIN 29.2 pg (28-32); MEAN CORPUSCULAR HGB CONC 33.6 g/dL (31-35); MEAN CORPUSCULAR VOLUME 87.1 fL (81-99); MONOCYTES # (AUTO) 0.5 (0.2-0.8); MONOCYTES % 8.4 % (4.4-11.3); NEUTROPHILS # (AUTO) 3.7 (2.1-6.9); NEUTROPHILS % 60.6 % (38.7-80.0); PLATELET COUNT 190 x10e3/uL (140-360); RED BLOOD COUNT 3.49 x10e6/uL (4.3-5.7); RED CELL DISTRIBUTION WIDTH 13.7 % (11.7-14.4)
[2018-02-25 05:28] LABS: ANION GAP 10.8 mmol/L (8-16); BLOOD UREA NITROGEN 13 mg/dL (7-26); BUN/CREATININE RATIO 12 (6-25); CALCIUM 8.5 mg/dL (8.4-10.2); CARBON DIOXIDE 26 mmol/L (22-29); CHLORIDE 100 mmol/L (98-107); CREATININE, SERUM 1.09 mg/dL (0.72-1.25); EST GLOMERULAR FILTRATION RATE > 60 ML/MIN (60-); GLUCOSE 117 mg/dL (74-118); MAGNESIUM 1.7 MG/DL (1.3-2.1); POTASSIUM 3.8 mmol/L (3.5-5.1); SODIUM 133 mmol/L (136-145)
[2018-02-25] MEDS: CLINDAMYCIN 300MG 50 ML IV SCH ×2 (05:35→14:31)
[2018-02-25] MEDS: FAMOTIDINE 20 MG/2 ML VIAL IV SCH (07:59)
[2018-02-25] MEDS: DOCUSATE SODIUM 100 MG CAP PO SCH (07:59)
[2018-02-25] MEDS: POLYETHYLENE GLYCOL 3350 17 GM PACK PO SCH (07:59)
[2018-02-25 08:25] VITALS: BP 120/77
[2018-02-25 12:00] VITALS: BP 135/80
[2018-02-25] MEDS ORDERED: ULTRAM50 MG PO (15:45)
--- NOTE | 2018-02-25 18:21 | Discharge Summary ---
ADMITTING DIAGNOSES 1. Stage-IV bladder cancer, transitional cell in nature, status post radical debulking, cystectomy and ileal conduit formation. 2. Hypertension. DISCHARGE DIAGNOSES 1. Stage-IV bladder cancer, transitional cell in nature, status post radical debulking, cystectomy and ileal conduit formation. 2. Hypertension. HISTORY: The patient has a history of hypertension, stage-IV bladder cancer, surgical history of ankle surgery. HOSPITAL COURSE: This 57-year-old male presents from PACU after radical cystectomy and ileal conduit for stage-IV transitional cell bladder cancer. On the day of admission, the patient had a chest x-ray that was negative. Labs remained stable after surgery. The patient was started on clindamycin and Zosyn throughout hospitalization. The patient's diet was slowly advanced. The patient had a bowel movement after about 4 days. The patient is now tolerating diet. Pain is controlled with p.o. meds, and he is ready to go home. He had a bowel movement a day prior to discharge. Vital signs are stable. The patient is afebrile. He will discharge home and follow up with urology as discussed. The patient understands the discharge plan and agrees to follow up. Dictated by Marcy Nice NP. YUE HUFF MD Job#: [id number]
== END 2018-02-25 16:17 | disposition home health service (06) | DRG 654 ==
LOC: SURG 10:29 → PACU V 18:52 → ICU 20:08 → MED/SURG 02-22 11:56
PROVIDERS: ADMIT Internal Medicine; ATTEND Internal Medicine
PROC: 07TC0ZZ Resection of Pelvis Lymphatic, Open Approach (ICD-10-PCS; 2018-02-19)
PROC: 0T1807C Bypass Bilateral Ureters to Ileocutaneous with Autologous Tissue Substitute, Open Approach (ICD-10-PCS; 2018-02-19)
PROC: 0VT00ZZ Resection of Prostate, Open Approach (ICD-10-PCS; 2018-02-19)
PROC: 0VT30ZZ Resection of Bilateral Seminal Vesicles, Open Approach (ICD-10-PCS; 2018-02-19)
PROC: 0TRB07Z Replacement of Bladder with Autologous Tissue Substitute, Open Approach (ICD-10-PCS; 2018-02-19)
PROC: 0TB70ZX Excision of Left Ureter, Open Approach, Diagnostic (ICD-10-PCS; 2018-02-19)
PROC: 0W9J00Z Drainage of Pelvic Cavity with Drainage Device, Open Approach (ICD-10-PCS; 2018-02-19)
PROC: 0TB60ZX Excision of Right Ureter, Open Approach, Diagnostic (ICD-10-PCS; 2018-02-19)
PROC: 30233N1 Transfusion of Nonautologous Red Blood Cells into Peripheral Vein, Percutaneous Approach (ICD-10-PCS; 2018-02-19)
PROC: 0TBB0ZZ Excision of Bladder, Open Approach (ICD-10-PCS; principal; 2018-02-19 12:30)
DX: C67.8 Malignant neoplasm of overlapping sites of bladder (principal); N13.30 Unspecified hydronephrosis; N13.4 Hydroureter; C77.5 Secondary and unspecified malignant neoplasm of intrapelvic lymph nodes; E87.0 Hyperosmolality and hypernatremia; E83.51 Hypocalcemia; K59.00 Constipation, unspecified; C61 Malignant neoplasm of prostate; I10 Essential (primary) hypertension; R31.0 Gross hematuria; E83.42 Hypomagnesemia
CPT/HCPCS: 36415; 36430; 71045; 80048; 83735; 85025; 86850; 86900; 86920; 88304; 88305; 88307; 88309; 88331; 88332; 88342; 94640; 96361; 96367; 97139; J0610; J0690; J1100; J1940; J2001; J2250; J2270; J2405; J2543; J2550; J3260; J3475; J7050; P9016

== ENCOUNTER 2018-03-05 11:50 | Observation (INO) | payer BC ==
[~2018-03-05] VITALS: Ht 167.6 cm; Wt 78.0 kg
[~2018-03-05 11:50] MED LIST changes: +COLACE100 M1 PO; +MIRALAX17 GM PO; +TYLENOL # 31 EA PO; +ULTRAM50 MG PO
[2018-03-05] MEDS ORDERED: ONDANSETRON HCL INJ 2 MG/ML VIAL IV STA (12:03)
[2018-03-05] MEDS ORDERED: MORPHINE SULFATE INJ 4 MG/ML INJ IV STA (12:03)
[2018-03-05 13:03] LABS: BASOPHILS # (AUTO) 0.1 (0.0-0.1); BASOPHILS % 0.6 % (0.0-1.0); EOSINOPHILS # (AUTO) 0.3 (0.0-0.4); EOSINOPHILS % 3.9 % (0.0-6.0); HEMATOCRIT 32.4 % (38.2-49.6); HEMOGLOBIN 10.7 g/dL (14.0-18.0); LYMPHOCYTES % 24.6 % (18.0-39.1); MEAN CORPUSCULAR HEMOGLOBIN 28.8 pg (28-32); MEAN CORPUSCULAR VOLUME 87.3 fL (81-99); MONOCYTES # (AUTO) 0.6 (0.2-0.8); MONOCYTES % 7.4 % (4.4-11.3); NEUTROPHILS % 62.7 % (38.7-80.0); PLATELET COUNT 270 x10e3/uL (140-360); RED BLOOD COUNT 3.71 x10e6/uL (4.3-5.7); RED CELL DISTRIBUTION WIDTH 13.8 % (11.7-14.4)
[2018-03-05 13:08] LABS: INR 1.01; PROTHROMBIN TIME 12.5 seconds (11.9-14.5)
[2018-03-05 13:09] LABS: PARTIAL THROMBOPLASTIN TIME 27.3 seconds (23.8-35.5)
[2018-03-05 13:15] LABS: ALANINE AMINOTRANSFERASE 20 IU/L (0-55); ALBUMIN 2.6 g/dL (3.5-5.0); ALBUMIN/GLOBULIN RATIO 0.6 (0.8-2.0); ALKALINE PHOSPHATASE 83 IU/L (40-150); ANION GAP 11.9 mmol/L (8-16); BLOOD UREA NITROGEN 13 mg/dL (7-26); BUN/CREATININE RATIO 14 (6-25); CALCIUM 8.8 mg/dL (8.4-10.2); CARBON DIOXIDE 24 mmol/L (22-29); CHLORIDE 106 mmol/L (98-107); CREATININE, SERUM 0.91 mg/dL (0.72-1.25); EST GLOMERULAR FILTRATION RATE > 60 ML/MIN (60-); GLUCOSE 97 mg/dL (74-118); POTASSIUM 3.9 mmol/L (3.5-5.1); SODIUM 138 mmol/L (136-145)
--- NOTE | 2018-03-05 14:23 | Diagnostic Imaging Report ---
EXAM: CT Abdomen and Pelvis WITH contrast INDICATION: \S\redness, swelling and discharge from surgical site \S\[id number] \S\1315 \S\Y COMPARISON: CT dated 02/05/2018 TECHNIQUE: Abdomen and pelvis were scanned utilizing a multidetector helical scanner from the lung base to the pubic symphysis after administration of IV contrast. Coronal and sagittal reformations were obtained. Routine protocol was performed. Scan was performed when during portal venous phase. IV CONTRAST: 100 mL of Isovue-370 ORAL CONTRAST: Water COMPLICATIONS: None RADIATION DOSE: Total DLP: 514.7 mGy*cm Estimated effective dose: (DLP x 0.015 x size factor) mSv CTDIvol has been reviewed. It is below the limits set by the Radiation Protocol Committee (RPC). FINDINGS: LINES and TUBES: Bilateral nephroureteral stents in place. LOWER THORAX: Unremarkable HEPATOBILIARY: Unchanged ill-defined right hepatic lobe subcentimeter hypodensity (series 2, image 19). No other focal hepatic lesion. No biliary ductal dilation. GALLBLADDER: No radio-opaque stones or sludge. No wall thickening. SPLEEN: Splenomegaly, measuring 13.5 cm. PANCREAS: No focal masses or ductal dilatation. ADRENALS: Thickening of the adrenal glands, likely from hyperplasia. No adrenal nodules. KIDNEYS/URETERS: Bilateral nephroureteral stents in place. Persistent delayed left nephrogram. No right hydronephrosis. Persistent moderate left hydroureteronephrosis. GI TRACT: No abnormal distention, wall thickening, or evidence of bowel obstruction. There are diverticula within the colon without evidence of diverticulitis. Appendix is not visualized. PELVIC ORGANS/BLADDER: Postsurgical changes of radical cystectomy and diverging loop urostomy in right lower quadrant. Multiloculated gas containing collection in the pelvis with areas of peripheral enhancement. The right pelvic component measures 4.2 x 3 cm (series 2, image 70). The left pelvic component measures 3.4 x 4.9 cm (2/70). These connected inferiorly. Surrounding fat stranding and small amount of free fluid. LYMPH NODES: Pelvic sidewall lymph node dissection clips. Stable 1.4 cm left common iliac lymph node (2/50). Unchanged 1.2 cm gastrohepatic lymph node (series 2, image 19). Additional subcentimeter retroperitoneal lymph nodes are unchanged. VESSELS: There is mild atherosclerotic disease in the aorta and major arterial branches. PERITONEUM / RETROPERITONEUM: Trace retroperitoneal air and small amount of free fluid. BONES: Mild levoscoliosis of lumbar spine with multilevel advanced degenerative changes. SOFT TISSUES: Midline laparotomy scar with skin silverio in place. There is subcutaneous fat stranding and phlegmonous material within the area measuring approximately 4.2 cm in craniocaudal dimension (series 300, image 64). IMPRESSION: 1. Postsurgical changes of radical cystectomy and diverging loop urostomy in right lower quadrant. Loculated gas containing collection in pelvic surgical bed with areas of peripheral enhancement, concerning for abscess formation. 2. Midline laparotomy scar with underlying fat stranding and phlegmonous changes. No discrete fluid collection at this time, but developing abscess cannot be excluded. 3. Status post bilateral nephroureteral stent placement with persistent delayed left nephrogram and moderate left hydroureteronephrosis. Signed by: Dr. Rito Ferrer MD on 03/05/2018 2:19 PM
[2018-03-05] MEDS ORDERED: MORPHINE SULFATE 2 MG/ML SYR IV PRN (14:45)
[2018-03-05] MEDS ORDERED: ONDANSETRON HCL INJ 2 MG/ML VIAL IV PRN (14:45)
[2018-03-05 14:58] LABS: BILIRUBIN,URINE NEGATIVE (NEGATIVE); CLARITY,URINE SL CLOUDY (CLEAR); COLOR,URINE YELLOW (YELLOW); KETONES,URINE NEGATIVE (NEGATIVE); LEUKOCYTE ESTERASE ,URINE TRACE (NEGATIVE); NITRITE,URINE NEGATIVE (NEGATIVE); PROTEIN,URINE DIPSTICK TRACE (NEGATIVE); URINE UROBILINOGEN 0.2 mg/dL (0.2 - 1)
[2018-03-05 15:10] LABS: BACTERIA,URINE FEW /HPF; WBC,URINE (MAN) >50 /HPF (0-5)
[2018-03-05 15:11] LABS: MUCUS,URINE FEW (RARE)
[2018-03-05] MEDS: PIPER-TAZ 3.375 GM 50 ML IV SCH ×2 (16:27→21:40)
[2018-03-05 19:00] VITALS: BP 141/80
[2018-03-05] MEDS ORDERED: AMOX TR-K CLV1 EAC1 (19:04)
[2018-03-05] MEDS ORDERED: OXYCODONE-ACET1 EAC3 (19:04)
[2018-03-05 20:00] VITALS: BP 141/80
[2018-03-05] MEDS ORDERED: SODIUM CHLORIDE 0.9% 250ML 250 ML ONE (21:17)
[2018-03-05] MEDS: MORPHINE SULFATE INJ 4 MG/ML INJ IV PRN (21:40)
[2018-03-06] VITALS: BP 113/73
[2018-03-06] MEDS ORDERED: SODIUM CHLORIDE 0.9% 50ML 50 ML ONE (00:51)
[2018-03-06] MEDS ORDERED: IOPAMIDOL 370 MG/ML 200 ML INFUS..BTL INJ ONE (00:51)
[2018-03-06] MEDS: MORPHINE SULFATE INJ 4 MG/ML INJ IV PRN ×3 (03:49→11:40)
[2018-03-06 04:00] VITALS: BP 126/74
[2018-03-06 05:19] LABS: BASOPHILS # (AUTO) 0.1 (0.0-0.1); BASOPHILS % 0.7 % (0.0-1.0); EOSINOPHILS # (AUTO) 0.4 (0.0-0.4); EOSINOPHILS % 5.1 % (0.0-6.0); HEMATOCRIT 30.5 % (38.2-49.6); HEMOGLOBIN 9.8 g/dL (14.0-18.0); LYMPHOCYTES # (AUTO) 1.5 (1.0-3.2); LYMPHOCYTES % 19.6 % (18.0-39.1); MEAN CORPUSCULAR HEMOGLOBIN 28.2 pg (28-32); MEAN CORPUSCULAR HGB CONC 32.1 g/dL (31-35); MEAN CORPUSCULAR VOLUME 87.9 fL (81-99); MONOCYTES # (AUTO) 0.6 (0.2-0.8); MONOCYTES % 8.5 % (4.4-11.3); NEUTROPHILS # (AUTO) 4.9 (2.1-6.9); NEUTROPHILS % 65.4 % (38.7-80.0); PLATELET COUNT 239 x10e3/uL (140-360); RED BLOOD COUNT 3.47 x10e6/uL (4.3-5.7); RED CELL DISTRIBUTION WIDTH 13.7 % (11.7-14.4)
[2018-03-06] MEDS: PIPER-TAZ 3.375 GM 50 ML IV SCH (05:27)
[2018-03-06 05:53] LABS: ANION GAP 11.1 mmol/L (8-16); BLOOD UREA NITROGEN 12 mg/dL (7-26); BUN/CREATININE RATIO 12 (6-25); CALCIUM 8.8 mg/dL (8.4-10.2); CARBON DIOXIDE 26 mmol/L (22-29); CHLORIDE 102 mmol/L (98-107); CREATININE, SERUM 1.03 mg/dL (0.72-1.25); EST GLOMERULAR FILTRATION RATE > 60 ML/MIN (60-); GLUCOSE 97 mg/dL (74-118); POTASSIUM 4.1 mmol/L (3.5-5.1); SODIUM 135 mmol/L (136-145)
[2018-03-06 07:57] VITALS: BP 118/73
[2018-03-06] MEDS ORDERED: TRAMADOL HCL 50 MG TAB PO PRN (10:00)
[2018-03-06] MEDS ORDERED: ACETAMINOPHEN/CODEINE 300MG - 30MG TAB PO PRN (10:00)
[2018-03-06] MEDS ORDERED: POLYETHYLENE GLYCOL 3350 17 GM PACK PO SCH (10:00)
[2018-03-06] MEDS ORDERED: FAMOTIDINE 20 MG TAB PO SCH (16:30)
[2018-03-06] MEDS ORDERED: DOCUSATE SODIUM 100 MG CAP PO SCH (17:00)
--- NOTE | 2018-03-06 17:09 | Discharge Summary ---
ADMISSION DIAGNOSES 1. Surgical site drainage. 2. Hypertension. 3. Anemia. 4. Hyponatremia. DISCHARGE DIAGNOSES 1. Surgical site drainage. 2. Hypotension. 3. Anemia. 4. Hypernatremia. HISTORY: Patient has a history of hypertension, stage IV bladder cancer, surgical history of left ankle surgery and radical cystectomy and ileal formation. HOSPITAL COURSE: A 57-year-old male complaining of leaking surgical site that began two days ago. The drainage is clear and only occurs when being pressed on. He denies nausea, vomiting and fever. His home health nurse found the drainage. He called Dr. Bunch who informed him that he should come to the ER. On admission, the patient's white count was 7.92. Patient was afebrile. CT of the abdomen showed postsurgical changes of radical cystectomy and diverging loop urostomy in right lower quadrant, loculated gas-containing collection in pelvic surgical bed with areas of peripheral enhancement concerning for abscess formation, midline laparotomy scar with underlying fat stranding and phlegmonous changes. No discrete fluid collection at the time. Status post bilateral nephroureteral stent placement with persistent delayed nephrogram and moderate left hydroureteronephrosis. Blood cultures were done. Urine cultures were negative times one. Patient remained afebrile overnight and white count remained normal. Patient was very adamant about being sent home. Case was discussed with Dr. Bah who agreed to discharge. He will follow up with Urology as discussed. The patient understands discharge instructions and agrees to plan. Dictated by: Marcy Nice NP. YUE BAH MD Job#: [id number]
[2018-03-07] MEDS ORDERED: LISINOPRIL 10 MG TAB PO SCH (09:00)
== END 2018-03-06 12:15 | disposition home or self-care (01) ==
LOC: ER 11:50 → ERHOLD 14:37 → IMCU 18:38
PROVIDERS: ADMIT Internal Medicine; ATTEND Internal Medicine
DX: L76.82 Other postprocedural complications of skin and subcutaneous tissue (principal); R10.33 Periumbilical pain; D64.9 Anemia, unspecified; E87.1 Hypo-osmolality and hyponatremia; I95.9 Hypotension, unspecified; I10 Essential (primary) hypertension; E87.0 Hyperosmolality and hypernatremia; Z96.0 Presence of urogenital implants
CPT/HCPCS: 36415 ×2; 74177; 80048; 80053; 81001; 82565; 83605; 85025 ×2; 85610; 85730; 87040; 87086; 99284; G0378 ×2; J2270 ×2; J2405; J2543 ×2; J7050; Q9967

== ENCOUNTER → 2021-10-27 | Outpatient (CLI) | payer OTHER ==
[~2021-10-27] MED LIST changes: +AMOX TR-K CLV1 EAC1; +OXYCODONE-ACET1 EAC3
== END ==
LOC: US 12:42
PROVIDERS: ATTEND Urology
DX: C67.9 Malignant neoplasm of bladder, unspecified (principal)
CPT/HCPCS: 76770

== ENCOUNTER → 2021-11-29 | Outpatient (CLI) | payer OTHER | LOC: CT 15:41 | PROVIDERS: ATTEND Urology | DX: N20.0 Calculus of kidney (principal) | CPT/HCPCS: 74176 ==

== ENCOUNTER → 2022-09-01 | Day surgery (SDC) | payer OTHER ==
[2022-08-30 10:38] LABS: BASOPHILS % 0.8 % (0.0-1.0); EOSINOPHILS # (AUTO) 0.1 (0.0-0.4); EOSINOPHILS % 2.4 % (0.0-6.0); HEMATOCRIT 41.5 % (38.2-49.6); HEMOGLOBIN 13.5 g/dL (14.0-18.0); LYMPHOCYTES # (AUTO) 1.5 (1.0-3.2); LYMPHOCYTES % 29.5 % (18.0-39.1); MEAN CORPUSCULAR HEMOGLOBIN 32.2 pg (28-32); MEAN CORPUSCULAR HGB CONC 32.5 g/dL (31-35); MONOCYTES # (AUTO) 0.3 (0.2-0.8); MONOCYTES % 6.3 % (4.4-11.3); NEUTROPHILS # (AUTO) 3.1 (2.1-6.9); NEUTROPHILS % 60.6 % (38.7-80.0); PLATELET COUNT 124 x10e3/uL (140-360); RED BLOOD COUNT 4.19 x10e6/uL (4.3-5.7); RED CELL DISTRIBUTION WIDTH 12.6 % (11.7-14.4)
[~2022-09-01] MED LIST changes: +BENICAR20 MG PO; +EPHEDRINE SULFATE INJ 50 MG/ML VIAL ONE; +FENTANYL CITRATE/PF 100MCG/2 ML INJ ONE; +HYDROCODONE/APAP 5MG-325MG TAB ONE; +IOPAMIDOL 200 MG/ML 20 ML VIAL IT ONE; +IOPAMIDOL 370 MG/ML 100 ML INFUS..BTL INJ ONE; +LEVOFLOXACIN 500MG/D5W 100ML 100 ML IV ONE; +LIDOCAINE HCL 2% LOCAL INJ 5 ML SDV VIAL INJ ONE; +ONDANSETRON HCL INJ 2MG/ML 2ML 2 MG/ML VIAL ONE; +POVIDONE IODINE 0.05% 0.05 % ML PO ONE; +PROPOFOL IV EMULSION 10 MG/ML 20 ML VIAL ONE; +SEVOFLURANE INHAL SOLN 250 ML PEN BTL ONE; +VALIUM2 MG PO
[2022-09-01 14:10] VITALS: BP 110/78
== END | disposition home or self-care (01) ==
LOC: OR 10:00
PROVIDERS: ATTEND Urology
DX: R31.0 Gross hematuria (principal); Z90.6 Acquired absence of other parts of urinary tract; Z85.51 Personal history of malignant neoplasm of bladder; I44.0 Atrioventricular block, first degree; J45.909 Unspecified asthma, uncomplicated; I10 Essential (primary) hypertension; F17.200 Nicotine dependence, unspecified, uncomplicated; Z01.810 Encounter for preprocedural cardiovascular examination; Z01.812 Encounter for preprocedural laboratory examination; Z01.818 Encounter for other preprocedural examination; Z79.899 Other long term (current) drug therapy
CPT/HCPCS: 36415; 71046; 74420; 85025; 88304; 88305; 93005; J1956; J2001; J2405; J3010; Q9967

== ENCOUNTER 2022-10-30 11:53 | Inpatient (IN) | payer OTHER ==
[~2022-10-30] VITALS: Ht 203.2 cm; Wt 78.0 kg
[~2022-10-30 11:53] MED LIST changes: -EPHEDRINE SULFATE INJ 50 MG/ML VIAL ONE; -FENTANYL CITRATE/PF 100MCG/2 ML INJ ONE; -HYDROCODONE/APAP 5MG-325MG TAB ONE; -IOPAMIDOL 200 MG/ML 20 ML VIAL IT ONE; -IOPAMIDOL 370 MG/ML 100 ML INFUS..BTL INJ ONE; -LEVOFLOXACIN 500MG/D5W 100ML 100 ML IV ONE; -LIDOCAINE HCL 2% LOCAL INJ 5 ML SDV VIAL INJ ONE; -ONDANSETRON HCL INJ 2MG/ML 2ML 2 MG/ML VIAL ONE; -POVIDONE IODINE 0.05% 0.05 % ML PO ONE; -PROPOFOL IV EMULSION 10 MG/ML 20 ML VIAL ONE; -SEVOFLURANE INHAL SOLN 250 ML PEN BTL ONE
[2022-10-30] MEDS ORDERED: KETOROLAC TROMETHAMINE 30 MG/ML VIAL IV STA (12:09)
[2022-10-30] MEDS ORDERED: SODIUM CHLORIDE 0.9% 1000ML 1,000 ML IV STA (12:09)
[2022-10-30 12:28] LABS: BASOPHILS % 0.2 % (0.0-1.0); EOSINOPHILS % 0.5 % (0.0-6.0); HEMOGLOBIN 15.8 g/dL (14.0-18.0); LYMPHOCYTES # (AUTO) 1.7 (1.0-3.2); LYMPHOCYTES % 19.9 % (18.0-39.1); MEAN CORPUSCULAR HEMOGLOBIN 30.3 pg (28-32); MEAN CORPUSCULAR HGB CONC 33.6 g/dL (31-35); MEAN CORPUSCULAR VOLUME 90.2 fL (81-99); MONOCYTES # (AUTO) 0.6 (0.2-0.8); NEUTROPHILS % 71.9 % (38.7-80.0); PLATELET COUNT 98 x10e3/uL (140-360); RED BLOOD COUNT 5.21 x10e6/uL (4.3-5.7); RED CELL DISTRIBUTION WIDTH 13.2 % (11.7-14.4)
[2022-10-30 12:35] LABS: CLARITY,URINE CLOUDY (CLEAR); COLOR,URINE YELLOW (YELLOW); KETONES,URINE NEGATIVE (NEGATIVE); LEUKOCYTE ESTERASE ,URINE LARGE (NEGATIVE); NITRITE,URINE NEGATIVE (NEGATIVE); PROTEIN,URINE DIPSTICK 2+ (NEGATIVE)
[2022-10-30 12:36] LABS: URINE UROBILINOGEN 0.2 mg/dL (0.2 - 1)
[2022-10-30 12:39] LABS: EPITHELIAL CELLS,URINE FEW /LPF; WBC,URINE (MAN) >50 /HPF (0-5)
[2022-10-30 12:41] LABS: BACTERIA,URINE MANY /HPF
[2022-10-30 12:52] LABS: INR 0.96; PROTHROMBIN TIME 13.3 seconds (11.9-14.5)
[2022-10-30 12:53] LABS: PARTIAL THROMBOPLASTIN TIME 28.4 seconds (23.8-35.5)
[2022-10-30 13:02] LABS: ALBUMIN 3.7 g/dL (3.5-5.0); ALBUMIN/GLOBULIN RATIO 0.8 (0.8-2.0); CALCIUM 9.3 mg/dL (8.4-10.2); CREATININE, SERUM 1.33 mg/dL (0.72-1.25); MAGNESIUM 1.6 MG/DL (1.3-2.1)
[2022-10-30] MEDS: Vancomycin IV 1 GM in SODIUM CHLORIDE 0.9% 250ML 250 ML IV SCH ×2 (13:15→20:12)
[2022-10-30] MEDS ORDERED: Morphine 4mg INJECTION 4 MG/ML INJ IV ONE (13:30)
[2022-10-30] MEDS ORDERED: ONDANSETRON HCL INJ 2MG/ML 2ML 2 MG/ML VIAL IV PRN (14:15)
[2022-10-30] MEDS: ONDANSETRON HCL INJ 2MG/ML 2ML 2 MG/ML VIAL IV PRN ×2 (14:25→20:06)
[2022-10-30 16:13] VITALS: BP 158/83
[2022-10-30 17:23] VITALS: BP 158/83
[2022-10-30 17:29] VITALS: BP 158/83
[2022-10-30 20:00] VITALS: BP 161/88
[2022-10-30] MEDS: Morphine 4mg INJECTION 4 MG/ML INJ IV PRN (20:07)
[2022-10-30] MEDS ORDERED: ACETAMINOPHEN 325 MG TAB PO PRN (22:00)
[2022-10-30 23:40] VITALS: BP 111/67
[2022-10-31] VITALS (7 sets, daily range): BP systolic 100–148; BP diastolic 71–86
[2022-10-31] MEDS: SODIUM CHLORIDE 0.9% 1000ML 1,000 ML IV SCH ×3 (01:57→21:02)
[2022-10-31] MEDS ORDERED: Vancomycin IV 1 GM in SODIUM CHLORIDE 0.9% 250ML 250 ML IV SCH (02:00)
[2022-10-31] MEDS: ONDANSETRON HCL INJ 2MG/ML 2ML 2 MG/ML VIAL IV PRN ×4 (04:40→17:47)
[2022-10-31] MEDS: Morphine 4mg INJECTION 4 MG/ML INJ IV PRN ×5 (04:41→22:08)
[2022-10-31 06:10] LABS: BASOPHILS % 0.1 % (0.0-1.0); EOSINOPHILS % 0.4 % (0.0-6.0); HEMATOCRIT 39.6 % (38.2-49.6); HEMOGLOBIN 13.3 g/dL (14.0-18.0); LYMPHOCYTES # (AUTO) 1.5 (1.0-3.2); LYMPHOCYTES % 18.8 % (18.0-39.1); MEAN CORPUSCULAR HEMOGLOBIN 30.3 pg (28-32); MEAN CORPUSCULAR HGB CONC 33.6 g/dL (31-35); MEAN CORPUSCULAR VOLUME 90.2 fL (81-99); MONOCYTES # (AUTO) 0.7 (0.2-0.8); MONOCYTES % 8.6 % (4.4-11.3); NEUTROPHILS # (AUTO) 5.7 (2.1-6.9); NEUTROPHILS % 71.8 % (38.7-80.0); PLATELET COUNT 82 x10e3/uL (140-360); RED BLOOD COUNT 4.39 x10e6/uL (4.3-5.7); RED CELL DISTRIBUTION WIDTH 13.2 % (11.7-14.4)
[2022-10-31 07:27] LABS: ALBUMIN 2.7 g/dL (3.5-5.0); ALBUMIN/GLOBULIN RATIO 0.7 (0.8-2.0); ANION GAP 13.2 mmol/L (8-16); CREATININE, SERUM 1.18 mg/dL (0.72-1.25); POTASSIUM 4.2 mmol/L (3.5-5.1)
[2022-10-31] MEDS: OLMESARTAN 20 MG TAB PO SCH (09:11)
[2022-10-31] MEDS: Vancomycin IV 1 GM in SODIUM CHLORIDE 0.9% 250ML 250 ML IV SCH (09:12)
[2022-10-31] MEDS ORDERED: ACETAMINOPHEN 325 MG TAB PO PRN (13:45)
[2022-10-31] MEDS ORDERED: POLYETHYLENE GLYCOL 3350 17 GM PACK PO PRN (13:45)
[2022-10-31] MEDS ORDERED: MELATONIN 3 MG TAB PO PRN (13:45)
[2022-10-31] MEDS ORDERED: HYDRALAZINE HCL 20 MG/ML VIAL IV PRN (13:45)
[2022-10-31] MEDS ORDERED: MAGNESIUM SULFATE 2GM/50ML 50 ML IV ONE (16:30)
[2022-10-31] MEDS ORDERED: MAGNESIUM SULF 1GRAM/DEXTROSE 100 ML IV ONE ×2 (16:30→22:05)
[2022-10-31] MEDS: DOCUSATE SODIUM 100 MG CAP PO SCH (17:46)
[2022-10-31] MEDS: FAMOTIDINE 20 MG TAB PO SCH (17:46)
[2022-10-31] MEDS: MEROPENEM 1 GM in SODIUM CHLORIDE 0.9% 100 ML IV SCH (21:02)
[2022-11-01] VITALS (8 sets, daily range): BP systolic 104–156; BP diastolic 69–96
[2022-11-01] MEDS: Morphine 4mg INJECTION 4 MG/ML INJ IV PRN ×6 (01:50→23:37)
[2022-11-01] MEDS: ONDANSETRON HCL INJ 2MG/ML 2ML 2 MG/ML VIAL IV PRN ×5 (01:54→23:38)
[2022-11-01] MEDS: MEROPENEM 1 GM in SODIUM CHLORIDE 0.9% 100 ML IV SCH (05:41)
[2022-11-01] MEDS ORDERED: Morphine 2mg Syringe 2 MG/ML SYR ONE (06:12)
[2022-11-01] MEDS: SODIUM CHLORIDE 0.9% 1000ML 1,000 ML IV SCH ×3 (06:21→23:44)
[2022-11-01 06:25] LABS: BASOPHILS % 0.7 % (0.0-1.0); EOSINOPHILS # (AUTO) 0.1 (0.0-0.4); EOSINOPHILS % 2.4 % (0.0-6.0); HEMATOCRIT 37.9 % (38.2-49.6); HEMOGLOBIN 12.7 g/dL (14.0-18.0); LYMPHOCYTES # (AUTO) 0.9 (1.0-3.2); LYMPHOCYTES % 20.6 % (18.0-39.1); MEAN CORPUSCULAR HEMOGLOBIN 30.6 pg (28-32); MEAN CORPUSCULAR HGB CONC 33.5 g/dL (31-35); MEAN CORPUSCULAR VOLUME 91.3 fL (81-99); MONOCYTES # (AUTO) 0.4 (0.2-0.8); MONOCYTES % 9.4 % (4.4-11.3); NEUTROPHILS # (AUTO) 3.1 (2.1-6.9); NEUTROPHILS % 66.7 % (38.7-80.0); PLATELET COUNT 80 x10e3/uL (140-360); RED BLOOD COUNT 4.15 x10e6/uL (4.3-5.7); RED CELL DISTRIBUTION WIDTH 13.1 % (11.7-14.4)
[2022-11-01 07:00] LABS: ALBUMIN 2.7 g/dL (3.5-5.0); ALBUMIN/GLOBULIN RATIO 0.7 (0.8-2.0); ANION GAP 11.6 mmol/L (8-16); CALCIUM 7.9 mg/dL (8.4-10.2); CHOL/HDL RATIO 6.5 (3.9-4.7); CREATININE, SERUM 0.96 mg/dL (0.72-1.25); PHOSPHORUS 2.9 MG/DL (2.3-4.7); POTASSIUM 3.6 mmol/L (3.5-5.1)
[2022-11-01 07:22] LABS: THYROID STIMULATING HORMONE 1.837 uIU/mL (0.350-4.940)
[2022-11-01] MEDS: OLMESARTAN 20 MG TAB PO SCH (09:57)
[2022-11-01] MEDS: DOCUSATE SODIUM 100 MG CAP PO SCH ×2 (09:57→16:46)
[2022-11-01] MEDS: FAMOTIDINE 20 MG TAB PO SCH ×2 (09:58→16:46)
[2022-11-01] MEDS ORDERED: IOPAMIDOL 370 MG/ML 100 ML INFUS..BTL INJ ONE (10:19)
[2022-11-01] MEDS ORDERED: SODIUM CHLORIDE 0.9% 250ML 250 ML ONE (10:20)
[2022-11-01] MEDS: POLYETHYLENE GLYCOL 3350 17 GM PACK PO SCH (16:47)
[2022-11-02 04:00] VITALS: BP 124/63
[2022-11-02 05:59] LABS: BASOPHILS % 0.3 % (0.0-1.0); EOSINOPHILS # (AUTO) 0.1 (0.0-0.4); EOSINOPHILS % 3.7 % (0.0-6.0); HEMATOCRIT 36.3 % (38.2-49.6); HEMOGLOBIN 12.3 g/dL (14.0-18.0); LYMPHOCYTES # (AUTO) 0.7 (1.0-3.2); LYMPHOCYTES % 23.3 % (18.0-39.1); MEAN CORPUSCULAR HEMOGLOBIN 30.4 pg (28-32); MEAN CORPUSCULAR HGB CONC 33.9 g/dL (31-35); MEAN CORPUSCULAR VOLUME 89.6 fL (81-99); MONOCYTES # (AUTO) 0.3 (0.2-0.8); MONOCYTES % 10.7 % (4.4-11.3); NEUTROPHILS # (AUTO) 1.9 (2.1-6.9); PLATELET COUNT 77 x10e3/uL (140-360); RED BLOOD COUNT 4.05 x10e6/uL (4.3-5.7); RED CELL DISTRIBUTION WIDTH 13.1 % (11.7-14.4)
[2022-11-02 06:21] LABS: ANION GAP 10.2 mmol/L (8-16); CALCIUM 8.2 mg/dL (8.4-10.2); CREATININE, SERUM 0.98 mg/dL (0.72-1.25); POTASSIUM 4.2 mmol/L (3.5-5.1)
[2022-11-02 08:18] VITALS: BP 124/71
[2022-11-02] MEDS: Morphine 4mg INJECTION 4 MG/ML INJ IV PRN (08:23)
[2022-11-02] MEDS: DOCUSATE SODIUM 100 MG CAP PO SCH (08:26)
[2022-11-02] MEDS: POLYETHYLENE GLYCOL 3350 17 GM PACK PO SCH (08:26)
[2022-11-02] MEDS: FAMOTIDINE 20 MG TAB PO SCH (08:26)
[2022-11-02] MEDS: OLMESARTAN 20 MG TAB PO SCH (08:26)
[2022-11-02 08:34] VITALS: BP 124/71
[2022-11-02] MEDS ORDERED: CEFTRIAXONE 2 GM in SODIUM CHLORIDE 0.9% 100 ML IV SCH (09:00)
[2022-11-02] MEDS ORDERED: FAMOTIDINE20 MG PO (09:46)
[2022-11-02] MEDS ORDERED: ACETAMINOPHEN325 M1 PO (09:46)
[2022-11-02] MEDS ORDERED: MIRALAX17 GM PO (09:46)
[2022-11-02] MEDS ORDERED: Docusate Sodium PO (09:46)
[2022-11-02] MEDS ORDERED: ONDANSETRON ODT4 MG PO (09:46)
[2022-11-02] MEDS ORDERED: CIPRO500 MG PO (09:48)
== END 2022-11-02 11:11 | disposition home or self-care (01) | DRG 698 ==
LOC: ER 11:59 → ERHOLD 14:23 → MED/SURG3 15:18
PROVIDERS: ADMIT Internal Medicine; ATTEND Internal Medicine
DX: T83.518A Infection and inflammatory reaction due to other urinary catheter, initial encounter (principal); A41.50 Gram-negative sepsis, unspecified; R65.20 Severe sepsis without septic shock; N13.6 Pyonephrosis; N17.9 Acute kidney failure, unspecified; E83.42 Hypomagnesemia; C61 Malignant neoplasm of prostate; K74.60 Unspecified cirrhosis of liver; F43.9 Reaction to severe stress, unspecified; J43.9 Emphysema, unspecified; T83.84XA Pain due to genitourinary prosthetic devices, implants and grafts, initial encounter; G89.28 Other chronic postprocedural pain; R16.2 Hepatomegaly with splenomegaly, not elsewhere classified; R10.84 Generalized abdominal pain; R80.9 Proteinuria, unspecified; F43.20 Adjustment disorder, unspecified; T74 Adult and child abuse, neglect and other maltreatment, confirmed
CPT/HCPCS: 36415; 74176; 74178; 80048; 80053; 80061; 81001; 83036; 83735; 84100; 84443; 85025; 85610; 85730; 87040; 87071; 87086; 87186; 87205; 94799; 96361; 99284; J0696; J1885; J2185; J2270; J2405; J3475; J7030; J7050; Q9967

== ENCOUNTER 2024-02-18 11:51 | Inpatient (IN) | payer OTHER ==
[2024-02-18] VITALS (8 sets, daily range): BP systolic 133–165; BP diastolic 78–87; PULSE 85–102; RESP 16–20; TEMP 97.9–98.1; O2SAT 97–99
[~2024-02-18] VITALS: Ht 170.2 cm; Wt 59.0 kg
[~2024-02-18 11:51] MED LIST changes: +ACETAMINOPHEN325 M1 PO; +CIPRO500 MG PO; +DEPAKOTE500 MG PO; +Docusate Sodium PO; +FAMOTIDINE20 MG PO; +MULTI-VITAMIN1 EAC1 PO; +OLMESARTAN MEDO20 MG PO; +ONDANSETRON ODT4 MG PO; +PANTOPRAZOLE SO40 MG PO; +PLAVIX75 MG PO; +TRAZODONE HCL100 MG PO
[2024-02-18 12:24] LABS: BASOPHILS # (AUTO) 0.1 (0.0-0.1); BASOPHILS % 0.6 % (0.0-1.0); EOSINOPHILS # (AUTO) 0.2 (0.0-0.4); EOSINOPHILS % 0.7 % (0.0-6.0); HEMATOCRIT 29.8 % (38.2-49.6); HEMOGLOBIN 9.7 g/dL (14.0-18.0); LYMPHOCYTES # (AUTO) 0.8 (1.0-3.2); LYMPHOCYTES % 3.5 % (18.0-39.1); MEAN CORPUSCULAR HEMOGLOBIN 31.4 pg (28-32); MEAN CORPUSCULAR HGB CONC 32.6 g/dL (31-35); MEAN CORPUSCULAR VOLUME 96.4 fL (81-99); MONOCYTES # (AUTO) 1.4 (0.2-0.8); MONOCYTES % 6.3 % (4.4-11.3); NEUTROPHILS # (AUTO) 18.8 (2.1-6.9); NEUTROPHILS % 84.8 % (38.7-80.0); PLATELET COUNT 56 x10e3/uL (140-360); RED BLOOD COUNT 3.09 x10e6/uL (4.3-5.7); RED CELL DISTRIBUTION WIDTH 17.6 % (11.7-14.4)
[2024-02-18 12:25] LABS: BILIRUBIN,URINE SMALL (NEGATIVE); CLARITY,URINE SL CLOUDY (CLEAR); COLOR,URINE AMBER (YELLOW); GLUCOSE, URINE NEGATIVE (NEGATIVE); KETONES,URINE TRACE (NEGATIVE); LEUKOCYTE ESTERASE ,URINE TRACE (NEGATIVE); NITRITE,URINE NEGATIVE (NEGATIVE); PH,URINE 6.5 (5 - 7); PROTEIN,URINE DIPSTICK 2+ (NEGATIVE); URINE UROBILINOGEN 4 mg/dL (0.2 - 1)
[2024-02-18 12:39] LABS: ALBUMIN 2.3 g/dL (3.5-5.0); ALBUMIN/GLOBULIN RATIO 0.4 (0.8-2.0); BILIRUBIN,TOTAL 2.5 mg/dL (0.2-1.2); CALCIUM 8.3 mg/dL (8.4-10.2); CREATININE, SERUM 1.14 mg/dL (0.72-1.25); TOTAL PROTEIN 8.2 g/dL (6.5-8.1)
[2024-02-18 12:41] LABS: BACTERIA,URINE MODERATE /HPF
[2024-02-18] MEDS ORDERED: PIPERACILLIN/TAZOBACTAM 3.375 GM VIAL ONE (12:58)
[2024-02-18] MEDS: FENTANYL CITRATE/PF 100MCG/2 ML INJ IV ONE (13:07)
[2024-02-18] MEDS: SODIUM CHLORIDE 0.9% 1000ML 1,000 ML IV SCH ×2 (13:07→17:39)
[2024-02-18] MEDS ORDERED: IOPAMIDOL 370 MG/ML 100 ML INFUS..BTL INJ ONE (14:11)
[2024-02-18] MEDS ORDERED: SODIUM CHLORIDE 0.9% 250ML 250 ML ONE (14:12)
[2024-02-18] MEDS: Morphine 4mg INJECTION 4 MG/ML INJ IV PRN (17:40)
[2024-02-18] MEDS: ONDANSETRON HCL INJ 2MG/ML 2ML 2 MG/ML VIAL IV PRN (21:37)
[2024-02-19] VITALS (10 sets, daily range): BP systolic 109–142; BP diastolic 64–81; PULSE 85–105; RESP 17–20; TEMP 98–99; O2SAT 94–98
[2024-02-19 05:36] LABS: BASOPHILS % 0.2 % (0.0-1.0); EOSINOPHILS # (AUTO) 0.2 (0.0-0.4); EOSINOPHILS % 1.5 % (0.0-6.0); HEMATOCRIT 25.9 % (38.2-49.6); LYMPHOCYTES # (AUTO) 0.6 (1.0-3.2); LYMPHOCYTES % 4.8 % (18.0-39.1); MEAN CORPUSCULAR HEMOGLOBIN 31.5 pg (28-32); MEAN CORPUSCULAR HGB CONC 31.7 g/dL (31-35); MONOCYTES % 7.9 % (4.4-11.3); NEUTROPHILS # (AUTO) 10.1 (2.1-6.9); NEUTROPHILS % 82.1 % (38.7-80.0); PLATELET COUNT 36 x10e3/uL (140-360); RED CELL DISTRIBUTION WIDTH 18.2 % (11.7-14.4); WHITE BLOOD COUNT 12.28 x10e3/uL (4.8-10.8)
[2024-02-19 05:39] LABS: HEMOGLOBIN 8.2 g/dL (14.0-18.0); MEAN CORPUSCULAR VOLUME 99.6 fL (81-99)
[2024-02-19 05:51] LABS: ANION GAP 11.1 mmol/L (8-16); CALCIUM 7.5 mg/dL (8.4-10.2); CREATININE, SERUM 1.07 mg/dL (0.72-1.25); POTASSIUM 4.1 mmol/L (3.5-5.1)
[2024-02-20] VITALS (8 sets, daily range): BP systolic 109–150; BP diastolic 55–82; PULSE 77–110; RESP 18–22; TEMP 98.2–98.7; O2SAT 95–100
[2024-02-20 06:31] LABS: EOSINOPHILS # (AUTO) 0.2 (0.0-0.4); EOSINOPHILS % 1.7 % (0.0-6.0); HEMATOCRIT 25.1 % (38.2-49.6); HEMOGLOBIN 7.9 g/dL (14.0-18.0); LYMPHOCYTES # (AUTO) 0.6 (1.0-3.2); LYMPHOCYTES % 5.3 % (18.0-39.1); MEAN CORPUSCULAR HEMOGLOBIN 31.5 pg (28-32); MEAN CORPUSCULAR HGB CONC 31.5 g/dL (31-35); NEUTROPHILS # (AUTO) 8.8 (2.1-6.9); NEUTROPHILS % 79.4 % (38.7-80.0); PLATELET COUNT 48 x10e3/uL (140-360); RED BLOOD COUNT 2.51 x10e6/uL (4.3-5.7); RED CELL DISTRIBUTION WIDTH 18.7 % (11.7-14.4); WHITE BLOOD COUNT 11.07 x10e3/uL (4.8-10.8)
[2024-02-20 06:51] LABS: ANION GAP 12.3 mmol/L (8-16); CALCIUM 7.6 mg/dL (8.4-10.2); CREATININE, SERUM 1.25 mg/dL (0.72-1.25); POTASSIUM 4.3 mmol/L (3.5-5.1)
[2024-02-20] MEDS: PANTOPRAZOLE SODIUM 20 MG TABLET.DR PO SCH (07:35)
[2024-02-20] MEDS: DEPAKOTE DELAYED-RELEASE TAB 500 MG PO SCH (17:48)
[2024-02-21] VITALS (9 sets, daily range): BP systolic 103–140; BP diastolic 56–77; PULSE 88–104; RESP 18–20; TEMP 97.9–98.9; O2SAT 93–100
[2024-02-21 05:50] LABS: BASOPHILS % 0.2 % (0.0-1.0); EOSINOPHILS # (AUTO) 0.1 (0.0-0.4); EOSINOPHILS % 1.1 % (0.0-6.0); HEMATOCRIT 25.9 % (38.2-49.6); HEMOGLOBIN 8.2 g/dL (14.0-18.0); LYMPHOCYTES # (AUTO) 0.8 (1.0-3.2); LYMPHOCYTES % 6.2 % (18.0-39.1); MEAN CORPUSCULAR HEMOGLOBIN 31.5 pg (28-32); MEAN CORPUSCULAR HGB CONC 31.7 g/dL (31-35); MEAN CORPUSCULAR VOLUME 99.6 fL (81-99); MONOCYTES # (AUTO) 1.2 (0.2-0.8); NEUTROPHILS # (AUTO) 9.5 (2.1-6.9); NEUTROPHILS % 77.6 % (38.7-80.0); PLATELET COUNT 60 x10e3/uL (140-360); RED CELL DISTRIBUTION WIDTH 19.4 % (11.7-14.4); WHITE BLOOD COUNT 12.23 x10e3/uL (4.8-10.8)
[2024-02-21 06:00] LABS: INR 1.22; PROTHROMBIN TIME 16.3 seconds (11.9-14.5)
[2024-02-21 06:24] LABS: ANION GAP 11.9 mmol/L (8-16); CALCIUM 7.8 mg/dL (8.4-10.2); CREATININE, SERUM 1.16 mg/dL (0.72-1.25); POTASSIUM 3.9 mmol/L (3.5-5.1)
[2024-02-21 07:11] LABS: FERRITIN 702.93 ng/mL (21.81-274.66)
[2024-02-21] MEDS: OLMESARTAN 20 MG TAB PO SCH (08:21)
[2024-02-21] MEDS ORDERED: SODIUM CHLORIDE 0.9% 500ML 500 ML ONE (08:58)
[2024-02-21] MEDS ORDERED: LIDOCAINE HCL 1% LOCAL INJ 20 ML VIAL ONE (08:58)
[2024-02-21] MEDS ORDERED: IOPAMIDOL 370 MG/ML 100 ML INFUS..BTL INJ ONE (08:58)
[2024-02-21] MEDS ORDERED: CEFTRIAXONE 1 GM VIAL ONE (09:02)
[2024-02-21] MEDS ORDERED: SODIUM CHLORIDE 0.9% 250ML 250 ML ONE (09:02)
[2024-02-21] MEDS ORDERED: MIDAZOLAM HCL 2 MG/2 ML VIAL ONE (10:39)
[2024-02-21] MEDS ORDERED: FENTANYL CITRATE/PF 100MCG/2 ML INJ ONE (10:39)
[2024-02-22] VITALS (10 sets, daily range): BP systolic 101–132; BP diastolic 60–72; PULSE 79–102; RESP 16–20; TEMP 97.6–98.8; O2SAT 95–100
[2024-02-23] VITALS (7 sets, daily range): BP systolic 98–125; BP diastolic 60–76; PULSE 71–94; RESP 16–18; TEMP 97.7–98.5; O2SAT 95–100
[2024-02-23 15:48] LABS: BASOPHILS # (AUTO) 0.1 (0.0-0.1); BASOPHILS % 0.7 % (0.0-1.0); EOSINOPHILS # (AUTO) 0.2 (0.0-0.4); EOSINOPHILS % 1.7 % (0.0-6.0); HEMATOCRIT 28.4 % (38.2-49.6); HEMOGLOBIN 8.7 g/dL (14.0-18.0); LYMPHOCYTES # (AUTO) 0.8 (1.0-3.2); LYMPHOCYTES % 6.4 % (18.0-39.1); MEAN CORPUSCULAR HEMOGLOBIN 31.5 pg (28-32); MEAN CORPUSCULAR HGB CONC 30.6 g/dL (31-35); MEAN CORPUSCULAR VOLUME 102.9 fL (81-99); MONOCYTES # (AUTO) 1.1 (0.2-0.8); NEUTROPHILS # (AUTO) 9.3 (2.1-6.9); NEUTROPHILS % 77.2 % (38.7-80.0); PLATELET COUNT 71 x10e3/uL (140-360); RED BLOOD COUNT 2.76 x10e6/uL (4.3-5.7); RED CELL DISTRIBUTION WIDTH 21.6 % (11.7-14.4); WHITE BLOOD COUNT 12.05 x10e3/uL (4.8-10.8)
[2024-02-23 16:07] LABS: ANION GAP 13.2 mmol/L (8-16); CALCIUM 7.9 mg/dL (8.4-10.2); CREATININE, SERUM 1.28 mg/dL (0.72-1.25); POTASSIUM 4.2 mmol/L (3.5-5.1)
[2024-02-24] VITALS (9 sets, daily range): BP systolic 110–165; BP diastolic 62–90; PULSE 74–110; RESP 17–20; TEMP 97.6–98.6; O2SAT 96–100
[2024-02-25] VITALS (7 sets, daily range): BP systolic 100–127; BP diastolic 55–73; PULSE 88–104; RESP 18–20; TEMP 97.4–98.2; O2SAT 96–100
[2024-02-25] MEDS: Morphine 4mg INJECTION 4 MG/ML INJ IV PRN (16:34)
[2024-02-26] VITALS (8 sets, daily range): BP systolic 90–114; BP diastolic 54–65; PULSE 77–97; RESP 17–21; TEMP 97.4; O2SAT 95–100
[2024-02-26] MEDS: FUROSEMIDE 20 MG TAB PO ONE (13:32)
[2024-02-26 14:50] LABS: BASOPHILS # (AUTO) 0.1 (0.0-0.1); BASOPHILS % 0.9 % (0.0-1.0); EOSINOPHILS % 0.3 % (0.0-6.0); HEMATOCRIT 29.8 % (38.2-49.6); HEMOGLOBIN 9.4 g/dL (14.0-18.0); LYMPHOCYTES # (AUTO) 1.1 (1.0-3.2); LYMPHOCYTES % 7.5 % (18.0-39.1); MEAN CORPUSCULAR HEMOGLOBIN 33.1 pg (28-32); MEAN CORPUSCULAR HGB CONC 31.5 g/dL (31-35); MEAN CORPUSCULAR VOLUME 104.9 fL (81-99); MONOCYTES # (AUTO) 1.6 (0.2-0.8); MONOCYTES % 11.2 % (4.4-11.3); NEUTROPHILS % 75.5 % (38.7-80.0); PLATELET COUNT 61 x10e3/uL (140-360); RED BLOOD COUNT 2.84 x10e6/uL (4.3-5.7); RED CELL DISTRIBUTION WIDTH 23.9 % (11.7-14.4); WHITE BLOOD COUNT 14.62 x10e3/uL (4.8-10.8)
[2024-02-26 15:10] LABS: ALBUMIN 2.1 g/dL (3.5-5.0); ALBUMIN/GLOBULIN RATIO 0.4 (0.8-2.0); ANION GAP 19.4 mmol/L (8-16); BILIRUBIN,TOTAL 2.8 mg/dL (0.2-1.2); CREATININE, SERUM 2.84 mg/dL (0.72-1.25); POTASSIUM 4.4 mmol/L (3.5-5.1); TOTAL PROTEIN 7.3 g/dL (6.5-8.1)
[2024-02-26 16:56] LABS: BILIRUBIN,URINE SMALL (NEGATIVE); CLARITY,URINE SL CLOUDY (CLEAR); COLOR,URINE YELLOW (YELLOW); GLUCOSE, URINE NEGATIVE (NEGATIVE); KETONES,URINE NEGATIVE (NEGATIVE); LEUKOCYTE ESTERASE ,URINE SMALL (NEGATIVE); NITRITE,URINE NEGATIVE (NEGATIVE); PH,URINE 5.5 (5 - 7); PROTEIN,URINE DIPSTICK 2+ (NEGATIVE); URINE UROBILINOGEN 0.2 mg/dL (0.2 - 1)
[2024-02-26 17:05] LABS: BACTERIA,URINE MODERATE /HPF; WBC,URINE (MAN) 21-50 /HPF (0-5)
[2024-02-27] VITALS (7 sets, daily range): BP systolic 96–129; BP diastolic 50–89; PULSE 74–100; RESP 18–22; TEMP 97.7–98.2; O2SAT 94–99
[2024-02-27 06:31] LABS: ANION GAP 14.9 mmol/L (8-16); CREATININE, SERUM 3.1 mg/dL (0.72-1.25); POTASSIUM 4.9 mmol/L (3.5-5.1)
[2024-02-27] MEDS: SODIUM CHLORIDE 0.9% 500ML 500 ML IV SCH (12:53)
[2024-02-27] MEDS: FUROSEMIDE INJ 10 MG/ML 4 ML VIAL IV ONE (15:45)
[2024-02-28] VITALS: BP 110/57; PULSE 91; RESP 18; TEMP 98.3; O2SAT 100
[2024-02-28 04:00] VITALS: BP 107/56; PULSE 80; RESP 18; TEMP 97.4; O2SAT 100
[2024-02-28 07:09] LABS: BASOPHILS # (AUTO) 0.1 (0.0-0.1); BASOPHILS % 0.3 % (0.0-1.0); EOSINOPHILS # (AUTO) 0.1 (0.0-0.4); EOSINOPHILS % 0.8 % (0.0-6.0); HEMATOCRIT 30.7 % (38.2-49.6); HEMOGLOBIN 9.9 g/dL (14.0-18.0); LYMPHOCYTES # (AUTO) 1.3 (1.0-3.2); LYMPHOCYTES % 8.9 % (18.0-39.1); MEAN CORPUSCULAR HEMOGLOBIN 32.7 pg (28-32); MEAN CORPUSCULAR HGB CONC 32.2 g/dL (31-35); MEAN CORPUSCULAR VOLUME 101.3 fL (81-99); MONOCYTES # (AUTO) 1.5 (0.2-0.8); NEUTROPHILS # (AUTO) 11.2 (2.1-6.9); NEUTROPHILS % 75.5 % (38.7-80.0); PLATELET COUNT 59 x10e3/uL (140-360); RED BLOOD COUNT 3.03 x10e6/uL (4.3-5.7); RED CELL DISTRIBUTION WIDTH 25.2 % (11.7-14.4); WHITE BLOOD COUNT 14.81 x10e3/uL (4.8-10.8)
[2024-02-28 07:46] LABS: ANION GAP 16.6 mmol/L (8-16); CALCIUM 7.7 mg/dL (8.4-10.2); CREATININE, SERUM 3.11 mg/dL (0.72-1.25); POTASSIUM 4.6 mmol/L (3.5-5.1)
[2024-02-28 08:30] VITALS: BP 107/61; PULSE 71; RESP 18; TEMP 97.6; O2SAT 99
[2024-02-28 09:28] VITALS: BP 107/61; PULSE 71; RESP 18; TEMP 97.6; O2SAT 99
[2024-02-28 10:27] LABS: INR 1.46; PROTHROMBIN TIME 18.7 seconds (11.9-14.5)
[2024-02-28 12:37] VITALS: BP 127/64; PULSE 95; RESP 18; TEMP 97.6; O2SAT 97
[2024-02-28 16:53] LABS: BODY FLUID COLOR YELLOW; BODY FLUID TYPE PERITONEAL
[2024-02-28 16:54] LABS: BODY FLUID APPEARANCE SL.CLOUDY; RBC,BODY FLUID 1000 cells/uL; WBC,BODY FLUID 467 cells/uL
[2024-02-28 18:18] LABS: LYMPHOCYTES,BODY FLUID 10 %; MONO/MACROPHG,BODY FLUID 23 %; NEUTROPHILS,BODY FLUID 67 %; TOTAL CELLS COUNTED (DIFF) 100
[2024-02-28] MEDS: FUROSEMIDE INJ 10 MG/ML 4 ML VIAL IV SCH (18:27)
[2024-02-28 20:00] VITALS: BP 111/48; PULSE 66; RESP 18; TEMP 98.2; O2SAT 96
[2024-02-29] VITALS (7 sets, daily range): BP systolic 84–134; BP diastolic 41–65; PULSE 52–102; RESP 18–20; TEMP 97.4–98.2; O2SAT 91–100
[2024-02-29 06:38] LABS: ANION GAP 17.6 mmol/L (8-16); CALCIUM 7.8 mg/dL (8.4-10.2); CREATININE, SERUM 2.71 mg/dL (0.72-1.25); POTASSIUM 4.6 mmol/L (3.5-5.1)
[2024-02-29 15:14] LABS: cANCA TITER <1:20 titer (Neg:<1:20)
[2024-02-29] MEDS: HYDROCODONE/APAP 5MG-325MG TAB PO PRN (16:05)
[2024-02-29 16:40] LABS: ATYPICAL pANCA TITER <1:20 titer (Neg:<1:20); pANCA TITER <1:20 titer (Neg:<1:20)
[2024-02-29] MEDS: Morphine 4mg INJECTION 4 MG/ML INJ IV PRN (19:29)
[2024-02-29] MEDS: LORAZEPAM INJ 2 MG/ML VIAL IV ONE (23:03)
[2024-03-01] MEDS ORDERED: LORAZEPAM INJ 2 MG/ML VIAL IV PRN (02:30)
[2024-03-01 05:53] LABS: SPE TOTAL PROTEIN 6.6
[2024-03-01 06:30] LABS: ANION GAP 13.7 mmol/L (8-16); CREATININE, SERUM 2.44 mg/dL (0.72-1.25); POTASSIUM 4.7 mmol/L (3.5-5.1)
[2024-03-01 08:10] VITALS: BP 101/78; PULSE 71; RESP 19; TEMP 97.9; O2SAT 95
[2024-03-01 09:33] VITALS: BP 101/78; PULSE 71; RESP 19; TEMP 97.9; O2SAT 95
[2024-03-01 11:35] VITALS: BP 93/55; PULSE 68; RESP 18; TEMP 98.2; O2SAT 100
[2024-03-01 15:46] VITALS: BP 90/59; PULSE 108; RESP 19; TEMP 97.9; O2SAT 100
[2024-03-01 16:44] VITALS: BP 105/55
[2024-03-01 17:38] LABS: SPE ALPHA 1 GLOBULIN 0.3; SPE ALPHA 2 GLOBULIN 0.5
[2024-03-01 17:39] LABS: GLOBULIN TOTAL 4.5; KAPPA LIGHT CHAINS 303.9; SPE GAMMA GLOBULIN 2.9
[2024-03-01 17:40] LABS: KAPPA/LAMBDA RATIO 2.48; LAMBDA LIGHT CHAINS 122.6
[2024-03-01 17:41] LABS: A/G RATIO 0.5
[2024-03-01] MEDS ORDERED: ONDANSETRON HCL 4 MG ORAL DISINTEGRATING TAB PO PRN (19:45)
[2024-03-01 20:40] VITALS: BP 93/64; PULSE 76; RESP 20; TEMP 97.2; O2SAT 99
[2024-03-02] VITALS (7 sets, daily range): BP systolic 95–131; BP diastolic 41–97; PULSE 77–103; RESP 17–21; TEMP 97–97.7; O2SAT 96–100
[2024-03-02 08:31] LABS: ANION GAP 12.7 mmol/L (8-16); CREATININE, SERUM 2.2 mg/dL (0.72-1.25); POTASSIUM 4.7 mmol/L (3.5-5.1)
[2024-03-03] VITALS (8 sets, daily range): BP systolic 91–139; BP diastolic 51–89; PULSE 75–106; RESP 16–21; TEMP 97.2–98.3; O2SAT 96–100
[2024-03-03] MEDS ORDERED: LORAZEPAM INJ 2 MG/ML VIAL IV PRN (08:00)
[2024-03-03] MEDS: LORAZEPAM 1 MG TAB PO ONE (08:47)
[2024-03-03] MEDS ORDERED: NALOXONE HCL INJ 0.4 MG/ML AMP IV PRN (12:15)
[2024-03-03] MEDS: LORAZEPAM 1 MG TAB PO PRN (19:26)
[2024-03-04] VITALS (7 sets, daily range): BP systolic 96–120; BP diastolic 52–64; PULSE 79–101; RESP 18–22; TEMP 97.3–97.9; O2SAT 97–100
[2024-03-05] VITALS: BP 134/73; PULSE 87; RESP 20; TEMP 97.1; O2SAT 100
[2024-03-05 04:00] VITALS: BP 121/78; PULSE 75; RESP 20; TEMP 97.3; O2SAT 98
[2024-03-05 07:00] VITALS: BP 114/78; PULSE 94; RESP 20; TEMP 98.1; O2SAT 100
[2024-03-05 10:30] VITALS: BP 114/78; PULSE 94; RESP 20; TEMP 98.1; O2SAT 100
[2024-03-05 11:00] VITALS: BP 112/60; PULSE 96; RESP 20; TEMP 98; O2SAT 100
[2024-03-05 15:00] VITALS: BP 118/60; PULSE 95; RESP 20; TEMP 97.8; O2SAT 100
[2024-03-05] MEDS ORDERED: LASIX40 MG PO (15:34)
[2024-03-05] MEDS ORDERED: Morphine 4mg INJECTION IV (15:34)
[2024-03-05] MEDS ORDERED: HYDROCODON-ACE1 EA11 PO (15:34)
[2024-03-05] MEDS ORDERED: ATIVAN1 MG PO (15:34)
[2024-03-05] MEDS ORDERED: ONDANSETRON ODT4 MG PO (15:34)
== END 2024-03-05 17:48 | disposition hospice, home (50) | DRG 682 ==
LOC: ER 12:05 → ERHOLD 13:26 → MED/SURG 16:26 → MED/SURG3 02-19 16:30
PROVIDERS: ADMIT Internal Medicine; ATTEND Internal Medicine
PROC: 0W9G30Z Drainage of Peritoneal Cavity with Drainage Device, Percutaneous Approach (ICD-10-PCS; principal; 2024-02-21)
PROC: 0T9430Z Drainage of Left Kidney Pelvis with Drainage Device, Percutaneous Approach (ICD-10-PCS; 2024-02-21)
DX: N17.9 Acute kidney failure, unspecified (principal); G93.41 Metabolic encephalopathy; I63.9 Cerebral infarction, unspecified; K65.2 Spontaneous bacterial peritonitis; R18.8 Other ascites; K76.6 Portal hypertension; C78.7 Secondary malignant neoplasm of liver and intrahepatic bile duct; F03.911 Unspecified dementia, unspecified severity, with agitation; N13.6 Pyonephrosis; D69.6 Thrombocytopenia, unspecified; E88.09 Other disorders of plasma-protein metabolism, not elsewhere classified; Z90.6 Acquired absence of other parts of urinary tract; Z66 Do not resuscitate; Z51.5 Encounter for palliative care; Z11.52 Encounter for screening for COVID-19; R56.9 Unspecified convulsions; D63.0 Anemia in neoplastic disease; N13.9 Obstructive and reflux uropathy, unspecified; D72.829 Elevated white blood cell count, unspecified; N40.1 Benign prostatic hyperplasia with lower urinary tract symptoms; R31.9 Hematuria, unspecified; I10 Essential (primary) hypertension; N50.89 Other specified disorders of the male genital organs; R16.1 Splenomegaly, not elsewhere classified; G89.3 Neoplasm related pain (acute) (chronic); Z79.02 Long term (current) use of antithrombotics/antiplatelets; Z92.3 Personal history of irradiation; Z92.21 Personal history of antineoplastic chemotherapy; Z85.51 Personal history of malignant neoplasm of bladder; Z93.6 Other artificial openings of urinary tract status; Z85.46 Personal history of malignant neoplasm of prostate; Z90.79 Acquired absence of other genital organ(s); Z88.0 Allergy status to penicillin; Z87.891 Personal history of nicotine dependence; Z83.79 Family history of other diseases of the digestive system
CPT/HCPCS: 32550; 36415; 49083; 50433; 74176; 74178; 74470; 75989; 76770; 76942; 80048; 80053; 81001; 82040; 82140; 82728; 83540; 83605; 83880; 84157; 84165; 84466; 85025; 85610; 85730; 86021; 86039; 86160; 86225; 87040; 87070; 87086; 87205; 88112; 88305; 89051; 94799; 99152; 99153; 99252; 99284; C1729; C1769; J0692; J0696; J1940; J2001; J2250; J2270; J2405; J2543; J7030; J7040; J7050; Q9967; U0002